=== PATIENT | female | born 1945 | race Caucasian/White ===

== ENCOUNTER 2019-12-05 13:39 | Outpatient (REF) | payer MEDICARE, SELFPAY ==
[2019-12-05 17:03] LABS: Alanine Aminotransferase 8 U/L (0-31); Albumin Level 4.3 g/dL (3.5-5.0); Alkaline Phosphatase 76 U/L (39-117); Anion Gap 10 (12-20); Aspartate Amino Transferase 17 U/L (5-31); Bilirubin Total 0.4 mg/dL (0.0-1.0); Blood Urea Nitrogen 11 mg/dL (9-16); Carbon Dioxide 31 mmol/L (22-29); Chloride 105 mmol/L (96-108); Estimated Glomerular Filt Rate 56; Glucose Random 77 mg/dL (60-115); Potassium 4.8 mmol/l (3.3-5.1); Sodium 141 mmol/L (135-145); Total Protein 6.5 g/dL (6.5-8.0)
[2019-12-05 19:18] LABS: Free T4 (Free Thyroxine) 0.93 ng/dL (0.71-1.85)
== END 2019-12-05 13:40 | disposition home or self-care (01) ==
LOC: HO.HMGCLDS 13:39
PROVIDERS: PCP Internal Medicine; Visit Provider Internal Medicine
DX: E03.9 Hypothyroidism, unspecified (principal); G47.00 Insomnia, unspecified; E78.9 Disorder of lipoprotein metabolism, unspecified; F41.9 Anxiety disorder, unspecified
CPT/HCPCS: 80053; 84439; 84443

== ENCOUNTER 2020-03-26 10:47 | Outpatient (REF) | payer MEDICARE, SELFPAY ==
[2020-03-26 13:54] LABS: MANUAL DIFF FLAG NO
[2020-03-26 14:17] LABS: Basophils Percent Auto 0.6 % (0-2); Eosinophils Absolute Auto 0.2 X10*3/uL (0.0-0.4); Eosinophils Percent Auto 5.1 % (0-4); Hematocrit 45.8 % (37-47); Hemoglobin 14.8 g/dl (12.0-16.0); Imm Gran Abs Auto 0.01 X10*3/uL (0.00-0.03); Imm Gran Pct Auto 0.2 % (0.0-0.4); Lymphocytes Absolute Auto 1.2 X10*3/uL (1.2-4.9); Lymphocytes Percent Auto 26.2 % (20-40); Mean Corpuscular HGB Conc 32.3 g/dl (31.0-35.0); Mean Corpuscular Hemoglobin 30.9 pg (27.0-33.0); Mean Corpuscular Volume 95.6 fL (80-98); Mean Platelet Volume 11.4 fL (9.4-12.3); Monocytes Absolute Auto 0.4 X10*3/uL (0.1-1.2); Monocytes Percent Auto 7.7 % (2-11); Neutrophils Absolute Auto 2.8 X10*3/uL (2.0-8.3); Neutrophils Percent Auto 60.2 % (45-73); Platelet Count 143 X10*3/uL (160-400); Red Blood Count 4.79 X10*6/uL (4.20-5.50); Red Cell Distribution Width 12.7 % (11.0-16.0); White Blood Count 4.7 X10*3/uL (4.8-10.8)
[2020-03-26 14:36] LABS: Anion Gap 13 (12-20); Blood Urea Nitrogen 12 mg/dL (9-16); Calcium 9.4 mg/dL (8.4-10.2); Carbon Dioxide 28 mmol/L (22-29); Chloride 106 mmol/L (96-108); Cholesterol 190 mg/dL; Estimated Glomerular Filt Rate > 60; Glucose Fasting 81 mg/dL (60-99); HDL Cholesterol 75 mg/dL; LDL Cholesterol Calculated 95 mg/dl; Potassium 4.3 mmol/L (3.3-5.1); Sodium 143 mmol/L (135-145); Triglycerides 101 mg/dL
[2020-03-26 14:57] LABS: TSH reflex Free T4 1.68 uIU/mL (0.32-4.0)
== END 2020-03-26 10:48 | disposition home or self-care (01) ==
LOC: HO.HMGCLDS 10:47
PROVIDERS: PCP Internal Medicine; Visit Provider Internal Medicine
DX: E78.9 Disorder of lipoprotein metabolism, unspecified (principal); G47.9 Sleep disorder, unspecified; E03.8 Other specified hypothyroidism; F41.1 Generalized anxiety disorder; Z85.819 Personal history of malignant neoplasm of unspecified site of lip, oral cavity, and pharynx
CPT/HCPCS: 36415; 80048; 80061; 84443; 85025

== ENCOUNTER 2020-05-27 10:00 | Outpatient (REF) | payer MEDICARE, SELFPAY ==
--- NOTE | ~2020-05-27 | MM_ITS ---
EXAMINATION: MM SCREENING DIGITAL BREAST TOMOSYNTHESIS, BILATERAL CLINICAL INFORMATION: Screening. Asymptomatic. Remote benign right lumpectomy 1996. The lifetime risk of breast cancer based on the Tyrer-Cuzick Model is 2%. COMPARISON: Mammography: 01/13/2019, 12/21/2017, 12/08/2016 TECHNIQUE: Digital breast tomosynthesis is performed in both the craniocaudal and mediolateral oblique views along with computer-aided detection (CAD). Synthesized 2D images are generated from the tomosynthesis. FINDINGS: There are scattered areas of fibroglandular density (ACR BI-RADS breast composition Category b). There are no significant masses, abnormal calcifications, or other abnormalities. Parenchymal pattern is similar to prior studies. There are some scattered vascular and some stable fine round calcifications again seen anterior breasts. MM/MM tomosynthesis screening BI IMPRESSION: No mammographic evidence of malignancy. ASSESSMENT: BI-RADS 2: Benign RECOMMENDATION: Routine annual mammography screening. This patient's information was entered into a reminder system with a target due date for their next mammogram.
== END 2020-05-27 10:01 | disposition home or self-care (01) ==
LOC: HO.MAMMO 10:00
PROVIDERS: Visit Provider Internal Medicine
DX: Z12.31 Encounter for screening mammogram for malignant neoplasm of breast (principal)
CPT/HCPCS: 77063; 77067

== ENCOUNTER 2020-07-17 11:11 | Outpatient (REF) | payer MEDICARE, SELFPAY ==
--- NOTE | ~2020-07-17 | XR_ITS ---
EXAMINATION: LUMBAR SPINE, RIGHT HIP AND SI JOINT. CLINICAL INFORMATION: Back pain. COMPARISON: None TECHNIQUE: SI joints 4 views right hip 2 views lumbar spine 3 views. FINDINGS: Lumbar spine: There is mild straightening of lumbar lordosis. The vertebral heights and alignment is normal. There is loss of L3-L4, L4-L5 disc height with moderate ventral spondylosis. There is no visible acute fracture, dislocation or lytic process. The paravertebral soft tissues are normal. SI joints: There is normal symmetry of SI joint. There is normal without any fracture or lytic process. Right hip joint: There is no visible acute fracture, dislocation or subluxation. No bony erosive changes seen. There are no loose bodies. The soft tissues are normal. XR/XR hip RT min 2V IMPRESSION: Degenerative disc changes L3-L4 and 4-5 disc levels without visible acute fracture or dislocation seen. Unremarkable SI joints and right hip exam.
--- NOTE | ~2020-07-17 | XR_ITS ---
EXAMINATION: LUMBAR SPINE, RIGHT HIP AND SI JOINT. CLINICAL INFORMATION: Back pain. COMPARISON: None TECHNIQUE: SI joints 4 views right hip 2 views lumbar spine 3 views. FINDINGS: Lumbar spine: There is mild straightening of lumbar lordosis. The vertebral heights and alignment is normal. There is loss of L3-L4, L4-L5 disc height with moderate ventral spondylosis. There is no visible acute fracture, dislocation or lytic process. The paravertebral soft tissues are normal. SI joints: There is normal symmetry of SI joint. There is normal without any fracture or lytic process. Right hip joint: There is no visible acute fracture, dislocation or subluxation. No bony erosive changes seen. There are no loose bodies. The soft tissues are normal. XR/XR sacroiliac joint 1-2V IMPRESSION: Degenerative disc changes L3-L4 and 4-5 disc levels without visible acute fracture or dislocation seen. Unremarkable SI joints and right hip exam.
--- NOTE | ~2020-07-17 | XR_ITS ---
EXAMINATION: LUMBAR SPINE, RIGHT HIP AND SI JOINT. CLINICAL INFORMATION: Back pain. COMPARISON: None TECHNIQUE: SI joints 4 views right hip 2 views lumbar spine 3 views. FINDINGS: Lumbar spine: There is mild straightening of lumbar lordosis. The vertebral heights and alignment is normal. There is loss of L3-L4, L4-L5 disc height with moderate ventral spondylosis. There is no visible acute fracture, dislocation or lytic process. The paravertebral soft tissues are normal. SI joints: There is normal symmetry of SI joint. There is normal without any fracture or lytic process. Right hip joint: There is no visible acute fracture, dislocation or subluxation. No bony erosive changes seen. There are no loose bodies. The soft tissues are normal. XR/XR lumbar spine 2-3V IMPRESSION: Degenerative disc changes L3-L4 and 4-5 disc levels without visible acute fracture or dislocation seen. Unremarkable SI joints and right hip exam.
== END 2020-07-17 11:12 | disposition home or self-care (01) ==
LOC: HO.XRAY 11:11
PROVIDERS: PCP Internal Medicine; Visit Provider Internal Medicine
DX: M54.5 Low back pain (principal); M25.551 Pain in right hip; R29.898 Other symptoms and signs involving the musculoskeletal system
CPT/HCPCS: 72100; 72200; 73502

== ENCOUNTER → 2020-08-05 10:53 | Outpatient (BNVA) | payer MEDICARE, SELFPAY | PROVIDERS: Visit Provider Physician Assistant | DX: M54.31 Sciatica, right side (principal); M54.5 Low back pain | CPT/HCPCS: 99202 ==

== ENCOUNTER 2020-09-05 10:40 | Outpatient (REF) | payer MEDICARE, SELFPAY ==
[2020-09-05 15:38] LABS: Hemoglobin 13.6 g/dl (12.0-16.0); PLT CLUMP 1
[2020-09-05 15:40] LABS: Hematocrit 41.3 % (37-47); Mean Corpuscular HGB Conc 32.9 g/dl (31.0-35.0); Mean Corpuscular Hemoglobin 31.3 pg (27.0-33.0); Mean Corpuscular Volume 94.9 fL (80-98); Mean Platelet Volume 11.3 fL (9.4-12.3); Platelet Count 126 X10*3/uL (160-400); Red Blood Count 4.35 X10*6/uL (4.20-5.50); Red Cell Distribution Width 12.8 % (11.0-16.0); White Blood Count 4.8 X10*3/uL (4.8-10.8)
[2020-09-05 15:49] LABS: Alanine Aminotransferase 8 U/L (0-31); Albumin Level 4.2 g/dL (3.5-5.0); Alkaline Phosphatase 93 U/L (39-117); Anion Gap 14 (12-20); Aspartate Amino Transferase 17 U/L (5-31); Bilirubin Total 0.5 mg/dL (0.0-1.0); Blood Urea Nitrogen 16 mg/dL (9-16); Calcium 9.2 mg/dL (8.4-10.2); Carbon Dioxide 26 mmol/L (22-29); Chloride 109 mmol/L (96-108); Estimated Glomerular Filt Rate 54; Glucose Random 75 mg/dL (60-115); Potassium 4.6 mmol/L (3.3-5.1); Sodium 144 mmol/L (135-145); Total Protein 6.7 g/dL (6.5-8.0)
== END 2020-09-05 10:41 | disposition home or self-care (01) ==
LOC: HO.HMGCLDS 10:40
PROVIDERS: PCP Internal Medicine; Visit Provider Dentist Oral and Maxillofacial Surgery
DX: C06.9 Malignant neoplasm of mouth, unspecified (principal)
CPT/HCPCS: 36415; 80053; 85027

== ENCOUNTER → 2020-09-24 09:14 | Outpatient (REF) | payer MEDICARE, SELFPAY ==
--- NOTE | 2020-09-24 09:18 | CA_ITS ---
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 The visually estimated ejection fraction is between 60-65%. - No obvious valvular pathology seen on this study. - Small plaque is seen in the ascending aorta. Findings Left Ventricle Normal left ventricular cavity size. There is normal left ventricular wall thickness. The left ventricular systolic function is normal. The visually estimated ejection fraction is between 60-65%. There is no evidence of regional wall motion abnormalities. E/E prime ratio is between 8 and 15 consistent with indeterminate filling pressures. Evidence suggests grade I (mild) diastolic dysfunction. Right Ventricle Normal right ventricular cavity size and systolic function. Atria Both atria are normal in size. Aortic Valve There is a normal trileaflet aortic valve. There is no aortic valve stenosis. There is no aortic valve regurgitation. Mitral Valve The mitral valve appears normal. There is trace mitral valve regurgitation. There is no mitral valve stenosis. Pulmonic Valve The pulmonic valve was not well visualized. Tricuspid Valve Normal tricuspid valve structure. There is no tricuspid valve regurgitation. The pulmonary artery systolic pressure is normal. Great Vessels The aortic annulus, sinuses of valsalva, and asc aorta are normal in size. Small plaque is seen in the ascending aorta. Venous The inferior vena cava is normal in size and collapses greater than 50% with inspiration. Pericardium/Pleural There is no evidence of pericardial effusion. Prior Study Comparison No prior study available for comparison. Recommendations, Care & Conclusions No obvious valvular pathology seen on this study. Measurements 2D Linear Measurements IVSd: 1.03 0.6-0.9/0.6-1.0 cm LVIDd: 3.70 3.9-5.3/4.2-5.9 cm LVIDd Index: 2.31 2.4-3.2/2.2-3.1 cm/m2 LVIDs: 2.36 2.0-3.6 cm LVPWd: 0.92 0.7-1.1 cm Ao Root: 2.60 2.1-3.5 cm LA Diam: 2.20 2.7-3.8/3.0-4.0 cm LAIDs Index: 1.38 1.5-2.3 cm/m2 LV Mass: 134.80 67-162/88-224 g LV Mass Index: 84.25 43-95/49-115 g/m2 LVOT Diam: 2.00 3.0+(-)1.3 cm 2D Systolic Function EF 4C: 66.10 >55% EF 2C: 64.40 >55% EF BiP: 65.10 >55% Mitral Valve MV Pk E: 0.76 MV PK A: 0.78 MV Decel Time: 234.00 E/A: 1.00 E'Lateral: 8.49 E'Medial: 5.22 E/E' Med: 14.60 E/E' Lat: 9.00 PHT: 68.00 MVA PHT: 3.24 Decel Hart: 3.26 Aortic Valve AoV Pk Amari: 1.38 AoV Mn Amari: 0.89 AoV VTI: 0.33 AoV Pk Grad: 8.00 Aov Mn Grad: 4.00 CHACHA Cont.VTI: 2.06 LVOT LVOT Pk Amari: 0.97 LVOT Mn Amari: 0.57 LVOT VTI: 0.22 LVOT Pk Grad: 4.00 LVOT Mn Grad: 2.00 LVOT Diam: 2.00 LVOT Area: 3.14 Diastolic Function MV Pk E: 0.76 MV Pk A: 0.78 E/A: 1.00 E'Medial: 5.22 E/E' Med: 14.60 E' Laterial: 8.49 E/E' Lat: 9.00 Right Ventricle TAPSE (mm): 27.00 TVS' Amari: 12.00 Tricuspid Valve TR Pk Amari: 1.71 TR Pk Grad: 12.00 RA Press: 3.00 RVSP: 15.00 Great Vessels Aorta Ao Root-2D: 2.60 2.0-3.7 cm Ao Asc: 2.80 2.1-3.4 cm Ao Arch: 2.10 Pulmonary Valve PV Pk Amari: 0.79 Peak PV Grad: 2.00 Updated in Other Vendor System with Status of Final Floyd Lopez MD electronically signed on 09/25/2020 12:32:32 PM with status of Final
== END ==
LOC: HO.CARD 09:14
PROVIDERS: PCP Internal Medicine; Visit Provider Internal Medicine
DX: Z01.818 Encounter for other preprocedural examination (principal); E78.9 Disorder of lipoprotein metabolism, unspecified; E03.8 Other specified hypothyroidism
CPT/HCPCS: 93306

== ENCOUNTER 2020-10-20 08:51 | Outpatient (REF) | payer MEDICARE, SELFPAY ==
[2020-10-20 11:05] LABS: MANUAL DIFF FLAG NO
[2020-10-20 11:16] LABS: Basophils Percent Auto 0.6 % (0-2); Eosinophils Absolute Auto 0.4 X10*3/uL (0.0-0.4); Eosinophils Percent Auto 7.3 % (0-4); Hemoglobin 13.6 g/dl (12.0-16.0); Imm Gran Abs Auto 0.02 X10*3/uL (0.00-0.03); Imm Gran Pct Auto 0.4 % (0.0-0.4); Lymphocytes Absolute Auto 1.3 X10*3/uL (1.2-4.9); Lymphocytes Percent Auto 25.9 % (20-40); Mean Corpuscular HGB Conc 32.4 g/dl (31.0-35.0); Mean Corpuscular Hemoglobin 30.7 pg (27.0-33.0); Mean Corpuscular Volume 94.8 fL (80-98); Monocytes Absolute Auto 0.4 X10*3/uL (0.1-1.2); Monocytes Percent Auto 7.9 % (2-11); Neutrophils Percent Auto 57.9 % (45-73); Platelet Count 129 X10*3/uL (160-400); Red Blood Count 4.43 X10*6/uL (4.20-5.50); Red Cell Distribution Width 12.9 % (11.0-16.0); White Blood Count 5.1 X10*3/uL (4.8-10.8)
[2020-10-20 12:02] LABS: TSH reflex Free T4 0.45 uIU/mL (0.32-4.0)
[2020-10-20 12:04] LABS: Alanine Aminotransferase 13 U/L (0-31); Albumin Level 4.2 g/dL (3.5-5.0); Alkaline Phosphatase 86 U/L (39-117); Anion Gap 13 (12-20); Aspartate Amino Transferase 20 U/L (5-31); Bilirubin Total 0.5 mg/dL (0.0-1.0); Blood Urea Nitrogen 15 mg/dL (9-16); Calcium 9.6 mg/dL (8.4-10.2); Carbon Dioxide 28 mmol/L (22-29); Chloride 109 mmol/L (96-108); Cholesterol 177 mg/dL; Estimated Glomerular Filt Rate 56; Glucose Fasting 87 mg/dL (60-99); HDL Cholesterol 78 mg/dL; LDL Cholesterol Calculated 84 mg/dl; Potassium 5.1 mmol/L (3.3-5.1); Sodium 145 mmol/L (135-145); Total Protein 6.6 g/dL (6.5-8.0); Triglycerides 77 mg/dL
== END 2020-10-20 08:52 | disposition home or self-care (01) ==
LOC: HO.HMGCLDS 08:51
PROVIDERS: PCP Internal Medicine; Visit Provider Internal Medicine
DX: E03.8 Other specified hypothyroidism (principal); E78.9 Disorder of lipoprotein metabolism, unspecified; F41.1 Generalized anxiety disorder; G47.9 Sleep disorder, unspecified
CPT/HCPCS: 36415; 80053; 80061; 84443; 85025

== ENCOUNTER 2020-12-18 12:50 | Outpatient (REF) | payer MEDICARE, SELFPAY ==
[2020-12-18 14:44] LABS: Alanine Aminotransferase 14 U/L (0-31); Albumin Level 4.3 g/dL (3.5-5.0); Alkaline Phosphatase 84 U/L (39-117); Anion Gap 11 (12-20); Aspartate Amino Transferase 25 U/L (5-31); Bilirubin Total 0.3 mg/dL (0.0-1.0); Blood Urea Nitrogen 9 mg/dL (9-16); Calcium 9.4 mg/dL (8.4-10.2); Carbon Dioxide 27 mmol/L (22-29); Chloride 108 mmol/L (96-108); Estimated Glomerular Filt Rate > 60; Glucose Random 87 mg/dL (60-115); Potassium 4.6 mmol/L (3.3-5.1); Sodium 141 mmol/L (135-145); Total Protein 6.8 g/dL (6.5-8.0)
== END 2020-12-18 12:51 | disposition home or self-care (01) ==
LOC: HO.HMGCLDS 12:50
PROVIDERS: PCP Internal Medicine; Visit Provider Dentist Oral and Maxillofacial Surgery
DX: C06.9 Malignant neoplasm of mouth, unspecified (principal)
CPT/HCPCS: 36415; 80053

== ENCOUNTER 2021-03-06 11:06 | Outpatient (REF) | payer MEDICARE, SELFPAY ==
[2021-03-06 13:41] LABS: MANUAL DIFF FLAG NO
[2021-03-06 14:00] LABS: Basophils Percent Auto 0.6 % (0-2); Eosinophils Absolute Auto 0.3 X10*3/uL (0.0-0.4); Hematocrit 43.7 % (37.0-47.0); Hemoglobin 14.2 g/dl (12.0-16.0); Imm Gran Abs Auto 0.01 X10*3/uL (0.00-0.03); Imm Gran Pct Auto 0.2 % (0.0-0.4); Lymphocytes Absolute Auto 1.4 X10*3/uL (1.2-4.9); Lymphocytes Percent Auto 29.7 % (20-40); Mean Corpuscular HGB Conc 32.5 g/dl (31.0-35.0); Mean Corpuscular Hemoglobin 30.8 pg (27.0-33.0); Mean Corpuscular Volume 94.8 fL (80.0-98.0); Mean Platelet Volume 11.1 fL (9.4-12.3); Monocytes Absolute Auto 0.3 X10*3/uL (0.1-1.2); Monocytes Percent Auto 6.4 % (2-11); Neutrophils Absolute Auto 2.8 x10*3/uL (2.0-8.3); Neutrophils Percent Auto 57.1 % (45-73); Platelet Count 130 X10*3/uL (160-400); Red Blood Count 4.61 X10*6/uL (4.20-5.50); White Blood Count 4.8 X10*3/uL (4.8-10.8)
[2021-03-06 14:13] LABS: Alanine Aminotransferase 16 U/L (0-31); Albumin Level 4.2 g/dL (3.5-5.0); Alkaline Phosphatase 92 U/L (39-117); Anion Gap 13 (12-20); Aspartate Amino Transferase 23 U/L (5-31); Bilirubin Total 0.4 mg/dL (0.0-1.0); Blood Urea Nitrogen 12 mg/dL (9-16); Calcium 9.5 mg/dL (8.4-10.2); Carbon Dioxide 26 mmol/L (22-29); Chloride 110 mmol/L (96-108); Estimated Glomerular Filt Rate 55; Glucose Random 98 mg/dL (60-115); Potassium 4.5 mmol/L (3.3-5.1); Sodium 144 mmol/L (135-145); Total Protein 6.8 g/dL (6.5-8.0)
[2021-03-06 14:37] LABS: TSH reflex Free T4 2.18 uIU/mL (0.32-4.0)
== END 2021-03-06 11:07 | disposition home or self-care (01) ==
LOC: HO.HMGCLDS 11:06
PROVIDERS: PCP Internal Medicine; Visit Provider Internal Medicine
DX: E78.9 Disorder of lipoprotein metabolism, unspecified (principal); E03.8 Other specified hypothyroidism; G47.9 Sleep disorder, unspecified; F41.1 Generalized anxiety disorder; D69.6 Thrombocytopenia, unspecified
CPT/HCPCS: 36415; 80053; 84443; 85025

== ENCOUNTER 2021-03-18 16:55 | Outpatient (REF) | payer MEDICARE, SELFPAY ==
[2021-03-19 10:02] LABS: BV Int Neg Control Negative (Negative); BV Int Pos Control Positive (Positive)
== END 2021-03-18 16:56 | disposition home or self-care (01) ==
LOC: HO.LNP 16:55
PROVIDERS: Visit Provider Internal Medicine
DX: N89.8 Other specified noninflammatory disorders of vagina (principal)
CPT/HCPCS: 87480; 87510; 87660

== ENCOUNTER 2021-05-28 10:44 | Outpatient (REF) | payer MEDICARE, SELFPAY ==
--- NOTE | ~2021-05-28 | MM_ITS ---
EXAMINATION: MM SCREENING DIGITAL BREAST TOMOSYNTHESIS, BILATERAL CLINICAL INFORMATION: Screening. Asymptomatic. Remote benign right breast lumpectomy. The lifetime risk of breast cancer based on the Tyrer-Cuzick Model is 2.3%. COMPARISON: Mammography: May 27, 2020 and studies dating back to July 20, 2013 TECHNIQUE: Digital breast tomosynthesis is performed in both the craniocaudal and mediolateral oblique views along with computer-aided detection (CAD). Synthesized 2D images are generated from the tomosynthesis. FINDINGS: There are scattered areas of fibroglandular density (ACR BI-RADS breast composition Category b). There are no new significant masses, abnormal calcifications, or other abnormalities. MM/MM tomosynthesis screening BI IMPRESSION: There are no significant changes from prior study. ASSESSMENT: BI-RADS 1: Negative RECOMMENDATION: Routine annual mammography screening. This patient's information was entered into a reminder system with a target due date for their next mammogram.
== END 2021-05-28 10:45 | disposition home or self-care (01) ==
LOC: HO.MAMMO 10:44
PROVIDERS: PCP Internal Medicine; Visit Provider Internal Medicine
DX: Z12.31 Encounter for screening mammogram for malignant neoplasm of breast (principal)
CPT/HCPCS: 77063; 77067

== ENCOUNTER 2021-07-29 10:36 | Outpatient (REF) | payer MEDICARE, SELFPAY ==
[2021-07-29 12:32] LABS: Alanine Aminotransferase 14 U/L (0-31); Albumin Level 4.2 g/dL (3.5-5.0); Alkaline Phosphatase 100 U/L (39-117); Anion Gap 13 (12-20); Aspartate Amino Transferase 21 U/L (5-31); Bilirubin Total 0.3 mg/dL (0.0-1.0); Blood Urea Nitrogen 18 mg/dL (9-16); Calcium 9.7 mg/dL (8.4-10.2); Carbon Dioxide 25 mmol/L (22-29); Chloride 109 mmol/L (96-108); Estimated Glomerular Filt Rate 58; Glucose Random 78 mg/dL (60-115); Potassium 4.4 mmol/L (3.3-5.1); Sodium 143 mmol/L (135-145); Total Protein 6.8 g/dL (6.5-8.0)
[2021-07-29 12:35] LABS: TSH reflex Free T4 1.23 uIU/mL (0.32-4.0)
== END 2021-07-29 10:37 | disposition home or self-care (01) ==
LOC: HO.HMGCLDS 10:36
PROVIDERS: PCP Internal Medicine; Visit Provider Internal Medicine
DX: F41.1 Generalized anxiety disorder (principal); G47.9 Sleep disorder, unspecified; E03.8 Other specified hypothyroidism; E78.9 Disorder of lipoprotein metabolism, unspecified; Z85.819 Personal history of malignant neoplasm of unspecified site of lip, oral cavity, and pharynx
CPT/HCPCS: 36415; 80053; 84443

== ENCOUNTER 2021-08-07 10:00 | Outpatient (RCR) | payer MEDICARE, SELFPAY ==
[2021-08-04 10:00] VITALS: BP 118/80; PULSE 60; O2SAT 97
--- NOTE | 2021-08-04 11:24 | MHC.PT.EP ---
[facility] [place] Office [place] Office [place] Office [address] Michelle White [address] [phone] F: [phone] F: [phone] F: [phone] F: [phone] Physical Therapy Plan of Care Date of Evaluation: Date of Surgery: Diagnosis: This is a 75 yo female presenting to skilled PT with a script for vertigo. Assessment: This is a 75 yo female presenting to skilled PT with a script for vertigo. Patient reporting symptoms for over 15 years, every now and then it acts up and it is acting up now. Symptoms increase with turning her head, getting up at night, looking up and doing stairs. Driving does not bother. Symptoms are described as my eyes are spinning. She has a history of oral cancer and she had a surgery that involved the L ear. She has not had any falls from the dizziness. Examination shows normal oculomotor tests, normal head thrust, (-) VBI B, and WFL cervical AROM. She was (+) for BPPV with suma-hallpike and L suha maneuver which was improved s/p tx. Patient demos poor balance balance at [facility] prior to assessing vertigo (may not be related to vertigo) but this was discussed with the patient and will do more so next session. S/S consistent with L PC BPPV and would benefit from PT 2x/wk for 4wks to address impairments, implement HEP and optimize functional mobility. Frequency and Duration: The patient will be seen 2x/wk for 4wks Short Term Goals: Dinker Goals: I in HEP No nystagmus or symptoms in any testing positions No LOB noted and normal scores on balance tests Treatment Plan: Modalities to reduce pain, spasms and effusion. Manual therapy to restore motion and function. Therapeutic exercise to improve strength and flexibility. Neuromuscular re-education for posture and balance. Therapeutic activities to return to functional activities of daily living. Electronically signed by: Vivian Romero PT Please sign and return to therapist. Thank you for your referral.
--- NOTE | 2021-09-04 08:25 | MHC.PT.DC ---
[facility] [place] Office [place] Office [place] Office [address] Michelle White [address] [phone] F: [phone] F: [phone] F: [phone] F: [phone] Physical Therapy Discharge Report Diagnosis: This is a 75 yo female presenting to skilled PT with a script for vertigo. Date of Surgery: Date of Evaluation: 08/04/21 Date of Discharge: 09/04/21 Treatments to Date: 2 Cancellations to Date: 0 No Shows to Date: 0 Discharge Status: Achieved Goals Improved Function Patient Elected to Stop Discharge Summary: Patient reporting no symptoms since evaluation. She was negative in all 6 canals of nystagmus or dizziness. She had a little lightheadedness upon supine <> sit which I attributed to BP as it lasted only a few seconds. She understands to call our office if symptoms return, I kept her chart open for 30 days and then DC'd. Electronically signed by: Vivian Romero, PT Please sign and return to therapist. Thank you for your referral.
== END 2021-09-04 08:26 | disposition home or self-care (01) ==
LOC: HO.PTCHIC 10:00
PROVIDERS: PCP Internal Medicine; Visit Provider Internal Medicine
DX: R42 Dizziness and giddiness (principal)
CPT/HCPCS: 95992; 97112; 97162

== ENCOUNTER 2021-10-21 13:00 | Outpatient (RCR) | payer MEDICARE, SELFPAY ==
[2021-10-01 08:58] VITALS: BP 120/80; PULSE 62; O2SAT 96
--- NOTE | 2021-11-20 13:26 | MHC.PT.DC ---
[facility] [place] Office [place] Office [place] Office [address] [place] [address] [address] White [address] [phone] F: [phone] F: [phone] F: [phone] F: [phone] Physical Therapy Discharge Report Diagnosis: This is a 75 yo female presenting to skilled PT with a script for vertigo. Date of Surgery: Date of Evaluation: 10/01/21 Date of Discharge: 11/20/21 Treatments to Date: 3 Cancellations to Date: 0 No Shows to Date: 0 Discharge Status: Achieved Goals Improved Function Independent with HEP Discharge Summary: Patient continues to be negative in all 6 canals for nystagmus and dizziness. She continues to demo some decreased balance with assessment but not from dizziness. I educated her on VOR exercises at home on own still with increasing speed to continue retraining exercises. Will keep chart open for 30 days due to reoccurrence from previous eval this year. Electronically signed by: Vivian Romero, PT Please sign and return to therapist. Thank you for your referral.
== END 2021-11-20 13:26 | disposition home or self-care (01) ==
LOC: HO.PTCHIC 13:00
PROVIDERS: PCP Internal Medicine; Visit Provider Internal Medicine
DX: R42 Dizziness and giddiness (principal)
CPT/HCPCS: 95992; 97112; 97162

== ENCOUNTER 2021-12-11 15:28 | Emergency (ER) | payer MEDICARE, SELFPAY ==
--- NOTE | ~2021-12-11 | CT_ITS ---
EXAMINATION: HEAD CT WITHOUT CONTRAST CERVICAL SPINE CT WITHOUT CONTRAST CLINICAL INFORMATION: Fall, head injury COMPARISON: None. TECHNIQUE: Contiguous axial imaging of the head was performed without the administration of IV contrast. Axial multidetector volumetric images were also performed through the cervical spine without contrast. Multiplanar reconstructed images in coronal and sagittal orientations were submitted. DOSE: 1022 mGy-cm FINDINGS: HEAD: There is no evidence of acute intracranial hemorrhage or territorial infarction. No abnormal mass-effect or midline shift. No extra-axial fluid collections. Tineo to white matter differentiation is well preserved. Commensurate prominence of the ventricles and sulci is compatible with generalized parenchymal volume loss. There is mild patchy periventricular and subcortical white matter hypoattenuation, most likely representing microangiopathic disease no acute calvarial fracture.. The sinuses and mastoid air cells are clear. CERVICAL SPINE: Craniocervical and atlantoaxial articulation is maintained. Predental space is maintained. There is reversal of the spinal curvature. Grade 1 anterolisthesis of C4 on C5. There is bilateral facet arthropathy at this level. Vertebral body heights are maintained. No evidence of acute fracture. Cervical spondylosis present. More prominent changes of moderate C6-7 disc degeneration. Multilevel facet degeneration.. Biapical pleural-parenchymal scarring. CT/CT cervical spine wo IV con IMPRESSION: 1. No CT evidence of acute intracranial hemorrhage or edematous territorial infarction. 2. No CT evidence of acute fracture in cervical spine. 3. Cervical spondylosis. Grade 1 anterolisthesis of C4, probably degenerative in nature.
--- NOTE | ~2021-12-11 | CT_ITS ---
EXAMINATION: HEAD CT WITHOUT CONTRAST CERVICAL SPINE CT WITHOUT CONTRAST CLINICAL INFORMATION: Fall, head injury COMPARISON: None. TECHNIQUE: Contiguous axial imaging of the head was performed without the administration of IV contrast. Axial multidetector volumetric images were also performed through the cervical spine without contrast. Multiplanar reconstructed images in coronal and sagittal orientations were submitted. DOSE: 1022 mGy-cm FINDINGS: HEAD: There is no evidence of acute intracranial hemorrhage or territorial infarction. No abnormal mass-effect or midline shift. No extra-axial fluid collections. Tineo to white matter differentiation is well preserved. Commensurate prominence of the ventricles and sulci is compatible with generalized parenchymal volume loss. There is mild patchy periventricular and subcortical white matter hypoattenuation, most likely representing microangiopathic disease no acute calvarial fracture.. The sinuses and mastoid air cells are clear. CERVICAL SPINE: Craniocervical and atlantoaxial articulation is maintained. Predental space is maintained. There is reversal of the spinal curvature. Grade 1 anterolisthesis of C4 on C5. There is bilateral facet arthropathy at this level. Vertebral body heights are maintained. No evidence of acute fracture. Cervical spondylosis present. More prominent changes of moderate C6-7 disc degeneration. Multilevel facet degeneration.. Biapical pleural-parenchymal scarring. CT/CT head/brain wo IV con IMPRESSION: 1. No CT evidence of acute intracranial hemorrhage or edematous territorial infarction. 2. No CT evidence of acute fracture in cervical spine. 3. Cervical spondylosis. Grade 1 anterolisthesis of C4, probably degenerative in nature.
[2021-12-11 16:25] VITALS: BP 111/75; PULSE 58; RESP 18; O2SAT 98; BMI 26.4
--- NOTE | 2021-12-11 16:31 | ECG_ITS ---
Test Reason : FALL Blood Pressure : / mmHG Vent. Rate : 056 BPM Atrial Rate : 056 BPM P-R Int : 174 ms QRS Dur : 082 ms QT Int : 436 ms P-R-T Axes : 072 027 039 degrees QTc Int : 420 ms Sinus bradycardia Low voltage QRS Otherwise normal ECG No previous ECGs available Referred By: Generic ED Physician Electronically Signed By:MARYLIN LAW MD
[2021-12-11 19:27] LABS: Neutrophils Absolute Auto 4.7 x10*3/uL (2.0-8.3); PLT CLUMP 1; SCAN SMEAR FLAG 1
[2021-12-11 19:29] LABS: Basophils Percent Auto 0.4 % (0-2); Eosinophils Absolute Auto 0.4 X10*3/uL (0.0-0.4); Eosinophils Percent Auto 6.1 % (0-4); Hemoglobin 13.3 g/dl (12.0-16.0); Imm Gran Abs Auto 0.02 X10*3/uL (0.00-0.03); Imm Gran Pct Auto 0.3 % (0.0-0.4); Lymphocytes Absolute Auto 1.2 X10*3/uL (1.2-4.9); Lymphocytes Percent Auto 18.3 % (20-40); Mean Corpuscular HGB Conc 32.4 g/dl (31.0-35.0); Mean Corpuscular Hemoglobin 30.6 pg (27.0-33.0); Mean Corpuscular Volume 94.3 fL (80.0-98.0); Monocytes Absolute Auto 0.4 X10*3/uL (0.1-1.2); Monocytes Percent Auto 5.5 % (2-11); Neutrophils Percent Auto 69.4 % (45-73); Red Blood Count 4.35 X10*6/uL (4.20-5.50); Red Cell Distribution Width 13.9 % (11.0-16.0)
[2021-12-11 19:31] LABS: Platelet Count 114 X10*3/uL (160-400); White Blood Count 6.8 X10*3/uL (4.8-10.8)
[2021-12-11 19:32] LABS: MANUAL DIFF FLAG NO
[2021-12-11 19:34] LABS: Prothrombin Time 11.7 SEC (10.0-13.1)
[2021-12-11 19:48] LABS: Alanine Aminotransferase 11 U/L (0-31); Albumin Level 4.6 g/dL (3.5-5.0); Alkaline Phosphatase 97 U/L (39-117); Anion Gap 14 (12-20); Aspartate Amino Transferase 20 U/L (5-31); Bilirubin Direct 0.2 mg/dL (0.0-0.5); Bilirubin Total 0.5 mg/dL (0.0-1.0); Blood Urea Nitrogen 12 mg/dL (9-16); Calcium 9.6 mg/dL (8.4-10.2); Carbon Dioxide 27 mmol/L (22-29); Chloride 105 mmol/L (96-108); Creatinine Clr Calc Pharmacy 45.6; Estimated Glomerular Filt Rate > 60; Glucose Random 104 mg/dL (60-115); Lipase 24 U/L (8-78); Sodium 142 mmol/L (135-145); Total Protein 7.2 g/dL (6.5-8.0)
[2021-12-11 19:51] LABS: Troponin-I High Sensitivity < 3.5 ng/L (<3.5-17.0)
[2021-12-12 00:58] VITALS: BP 152/47; PULSE 54; RESP 17; TEMP 37.1; O2SAT 96
--- NOTE | 2021-12-12 01:29 | ED.FALL ---
HPI - Fall General Chief Complaint: Fall Stated Complaint: fall/head inj Time Seen by Provider: 12/12/21 00:54 Source: patient and family Mode of arrival: ambulatory History of Present Illness HPI Narrative: 36-year-old female who presents for evaluation after stating that she stepped off of a step stool, lost her balance and struck the back of her head against the tile on her bathroom wall without loss of consciousness. She denies any use of anticoagulation. At this time she denies any dizziness, headache, visual/speech difficulties and denies any unilateral weakness/numbness/tingling. Related Data Home Medications Medication Instructions Recorded Confirmed flu vacc 2020-21(65yr 0.5 ml IM DIRECTED 12/19/19 07/29/21 up)-MF59C(PF) 60 mcg(15 mcgx4)/0.5 mL IM syringe cetirizine 10 mg tablet (Zyrtec) 10 mg PO DAILY PRN 06/02/21 12/04/21 Previous Rx's Medication Instructions Recorded levothyroxine 100 mcg tablet 100 mcg PO DAILY 90 days #90 tabs 08/28/21 lovastatin 40 mg tablet 80 mg PO DAILY 90 days #180 tabs 08/28/21 sertraline 100 mg tablet 200 mg PO DAILY 90 days #180 tabs 12/04/21 trazodone 100 mg tablet 100 mg PO DAILY 90 days #90 tabs 12/04/21 Allergies Allergy/AdvReac Type Severity Reaction Status Date / Time No Known Drug Allergies Allergy Unknown Unknown Verified 12/04/21 11:52 Review of Systems Review of Systems: Pertinent positives and negatives as stated in HPI 10 point review of systems is otherwise negative. [facility] Past Medical History Source: nursing notes reviewed Medical History Anxiety, generalized Difficulty sleeping History of mouth cancer Lipid disorder Other specified hypothyroidism Pre-op evaluation Preoperative evaluation for tubal ligation Surgical History History of colonoscopy History of oral surgery History of rotator cuff surgery History of tonsillectomy Status post excisional biopsy Family History Family History Father HTN (hypertension) Mother Myocardial infarction Brother HTN (hypertension) Diabetes mellitus Son No problems noted. Daughter No problems noted. Brother No problems noted. Brother No problems noted. Sister No problems noted. Sister No problems noted. Son No problems noted. Social History Social History Housing: House Alcohol intake: current Alcohol intake frequency: holidays/special occasions only Alcohol type: beer Patient Tobacco Use Status: Former Tobacco user (quit 5 years ago ) Tobacco use type: Cigarette Cigarette Packs Per Day: 1 Years Smoked: 60 e-Cigarette/Vaping Use: Never Used Advance Directives: No Advance Directives Information Provided: No service: No Current occupational status: retired Cognitive needs: No Hearing needs: No Vision needs: No Physical Exam Vital Signs: Vital Signs: Last Vital Signs Temp 98.7 F 12/12/21 00:58 Pulse 54 12/12/21 00:58 Resp 17 12/12/21 00:58 BP 152/47 H 12/12/21 00:58 Pulse Ox 96 12/12/21 00:58 O2 Del Method 12/12/21 00:58 BMI result Body Mass Index 26.4 VITAL SIGNS: Reviewed. GENERAL: Well developed, well nourished, in no acute distress. HEAD: Normocephalic/scalp laceration to the mid occipital and currently hemostatic EYES: PERRLA, EOMI EARS: Ext canals without abnormality, TMs non-bulging and non-erythematous NOSE: Nares patent bilateral OROPHARYNX: no oral lesions noted, posterior pharynx clear and non-erythematous without noted tonsillar enlargement/erythema/exudates NECK: Supple, no adenopathy LUNGS: Normal breath sounds. No adventitious sounds or accessory muscle use. SpO2<96> CARDIOVASCULAR: Regular rate and rhythm without noted murmurs ABDOMEN: Soft, non-tender, non-distended with bowel sounds. MUSCULOSKELETAL: No tenderness, deformities, or effusions noted on gross inspection. EXTREMITIES: No cyanosis, clubbing or edema. SKIN: Inspection of the skin reveals no rashes NEUROLOGIC: Alert and oriented x 4. Strength and sensation to light touch were grossly intact x 4. Course Course Course Narrative: 76-year-old female with history and clinical presentation consistent with scalp laceration associated with mechanical fall. Review of all investigations otherwise negative for acute findings, patient received Tdap for unknown last tetanus and 2 yoselin were placed in the scalp. Procedures Laceration Laceration 1: Site: scalp Size (cm): 2.5 Description: linear Depth: simple, single layer Pre-repair: wound explored, irrigated extensively and deep structures intact Skin layer closed with: other (Staple) Number of sutures: 2 MDM - Fall Lab Data Result diagrams: 12/11/21 19:09 12/11/21 19:09 Labs: Lab Results 12/11/21 12/11/21 12/11/21 Range/Units 19:09 19:09 19:09 WBC 6.8 (4.8-10.8) X10*3/uL RBC 4.35 (4.20-5.50) X10*6/uL Hgb 13.3 (12.0-16.0) g/dl Hct 41.0 (37.0-47.0) % MCV 94.3 (80.0-98.0) fL MCH 30.6 (27.0-33.0) pg MCHC 32.4 (31.0-35.0) g/dl RDW 13.9 (11.0-16.0) % Plt Count 114 L (160-400) X10*3/uL MPV 11.0 (9.4-12.3) fL Immature Gran % (Auto) 0.3 (0.0-0.4) % Neut % (Auto) 69.4 (45-73) % Lymph % (Auto) 18.3 L (20-40) % [place] % (Auto) 5.5 (2-11) % Eos % (Auto) 6.1 H (0-4) % Baso % (Auto) 0.4 (0-2) % Lymph # (Auto) 1.2 (1.2-4.9) X10*3/uL [place] # (Auto) 0.4 (0.1-1.2) X10*3/uL Eos # (Auto) 0.4 (0.0-0.4) X10*3/uL Baso # (Auto) 0.0 (0.0-0.2) X10*3/uL Abs Immat Gran (auto) 0.02 (0.00-0.03) X10*3/uL Absolute Neuts (auto) 4.7 (2.0-8.3) x10*3/uL Absolute Nucleated RBC 0.000 (0.0-0.012) X10*3/uL Nucleated RBC % (auto) 0.0 (0.0-0.2) /100WBC PT 11.7 (10.0-13.1) SEC INR 1.0 (0.9-1.1) Sodium 142 (135-145) mmol/L Potassium 4.0 (3.3-5.1) mmol/L Chloride 105 (96-108) mmol/L Carbon Dioxide 27 (22-29) mmol/L Anion Gap 14 (12-20) BUN 12 (9-16) mg/dL Creatinine 0.91 (0.5-1.4) mg/dL Estim Creat Clear Calc 45.6 Estimated GFR > 60 Random Glucose 104 (60-115) mg/dL Calcium 9.6 (8.4-10.2) mg/dL Total Bilirubin 0.5 (0.0-1.0) mg/dL Direct Bilirubin 0.2 (0.0-0.5) mg/dL AST 20 (5-31) U/L ALT 11 (0-31) U/L Alkaline Phosphatase 97 (39-117) U/L Troponin I High Sens (<3.5-17.0) ng/L Total Protein 7.2 (6.5-8.0) g/dL Albumin 4.6 (3.5-5.0) g/dL Lipase 24 (8-78) U/L // Range/Units 19:09 WBC (4.8-10.8) X10*3/uL RBC (4.20-5.50) X10*6/uL Hgb (12.0-16.0) g/dl Hct (37.0-47.0) % MCV (80.0-98.0) fL MCH (27.0-33.0) pg MCHC (31.0-35.0) g/dl RDW (11.0-16.0) % Plt Count (160-400) X10*3/uL MPV (9.4-12.3) fL Immature Gran % (Auto) (0.0-0.4) % Neut % (Auto) (45-73) % Lymph % (Auto) (20-40) % [place] % (Auto) (2-11) % Eos % (Auto) (0-4) % Baso % (Auto) (0-2) % Lymph # (Auto) (1.2-4.9) X10*3/uL [place] # (Auto) (0.1-1.2) X10*3/uL Eos # (Auto) (0.0-0.4) X10*3/uL Baso # (Auto) (0.0-0.2) X10*3/uL Abs Immat Gran (auto) (0.00-0.03) X10*3/uL Absolute Neuts (auto) (2.0-8.3) x10*3/uL Absolute Nucleated RBC (0.0-0.012) X10*3/uL Nucleated RBC % (auto) (0.0-0.2) /100WBC PT (10.0-13.1) SEC INR (0.9-1.1) Sodium (135-145) mmol/L Potassium (3.3-5.1) mmol/L Chloride (96-108) mmol/L Carbon Dioxide (22-29) mmol/L Anion Gap (12-20) BUN (9-16) mg/dL Creatinine (0.5-1.4) mg/dL Estim Creat Clear Calc Estimated GFR Random Glucose (60-115) mg/dL Calcium (8.4-10.2) mg/dL Total Bilirubin (0.0-1.0) mg/dL Direct Bilirubin (0.0-0.5) mg/dL AST (5-31) U/L ALT (0-31) U/L Alkaline Phosphatase (39-117) U/L Troponin I High Sens < 3.5 (<3.5-17.0) ng/L Total Protein (6.5-8.0) g/dL Albumin (3.5-5.0) g/dL Lipase (8-78) U/L Discharge Plan Discharge Clinical Impression: Fall, Laceration of scalp Patient Disposition: Home, Self-Care Instructions: Fall Prevention for Older Adults (ED), Laceration (ED), Staple Care (ED) Additional Instructions: 1. Resume all home medications as prescribed. I recommend [id number] Tylenol/ibuprofen as needed for any pain control. 2. Please follow-up with your primary care provider for staple removal in 7 days. 3. Exercise caution with combing/brushing your hair but you may go ahead in wash her hair with warm water, rinse and blot dry. 4. Follow-up with your primary care provider by calling the office on Tuesday morning. Return to the ER for worsening symptoms. Prescriptions: No Action levothyroxine 100 mcg tablet 100 mcg PO DAILY 90 Days Qty: 90 1RF lovastatin 40 mg tablet 80 mg PO DAILY 90 Days Qty: 180 1RF Fluad Quad 2019-(65y up)(PF) 60 mcg (15 mcg x 4)/0.5 mL syringe 0.5 ml IM DIRECTED cetirizine [Zyrtec] 10 mg tablet 10 mg PO DAILY PRN trazodone 100 mg tablet 100 mg PO DAILY 90 Days Qty: 90 0RF sertraline 100 mg tablet 200 mg PO DAILY 90 Days Qty: 180 1RF Referrals: Maye Luna MD [Primary Care Provider] -
[2021-12-12] MEDS: Diphth,Pertus(ACell),Tet Adult 0.5 ML SYRINGE IM (01:53)
[2021-12-12] MEDS: Ibuprofen 400 MG TABLET PO (01:53)
[2021-12-12] MEDS: Acetaminophen 325 MG TABLET 975 MG PO (01:53)
--- NOTE | 2021-12-12 01:57 | PC.NURSE ---
pt medicated for pain and tdap prior to discharge. at bedside. no apparent distress
== END 2021-12-12 01:57 | disposition home or self-care (01) ==
PROVIDERS: Emergency Provider Student in an Organized Health Care Education/Training Program; PCP Internal Medicine
DX: S01.01XA Laceration without foreign body of scalp, initial encounter (principal); W11.XXXA Fall on and from ladder, initial encounter; Y93.9 Activity, unspecified; Y92.019 Unspecified place in single-family (private) house as the place of occurrence of the external cause; Y99.9 Unspecified external cause status
CPT/HCPCS: 12001; 36415; 70450; 72125; 80053; 82248; 83690; 84484; 85025; 85610; 90471; 90715; 93005; 99284

== ENCOUNTER 2022-04-02 09:41 | Outpatient (REF) | payer MEDICARE, SELFPAY ==
[2022-04-02 11:33] LABS: MANUAL DIFF FLAG NO
[2022-04-02 11:56] LABS: Basophils Percent Auto 0.7 % (0-2); Eosinophils Absolute Auto 0.2 X10*3/uL (0.0-0.4); Eosinophils Percent Auto 5.2 % (0-4); Hemoglobin 14.6 g/dl (12.0-16.0); Imm Gran Abs Auto 0.01 X10*3/uL (0.00-0.03); Imm Gran Pct Auto 0.2 % (0.0-0.4); Lymphocytes Absolute Auto 1.2 X10*3/uL (1.2-4.9); Lymphocytes Percent Auto 27.4 % (20-40); Mean Corpuscular HGB Conc 32.4 g/dl (31.0-35.0); Mean Corpuscular Hemoglobin 30.4 pg (27.0-33.0); Mean Corpuscular Volume 93.6 fL (80.0-98.0); Mean Platelet Volume 11.4 fL (9.4-12.3); Monocytes Absolute Auto 0.3 X10*3/uL (0.1-1.2); Monocytes Percent Auto 7.3 % (2-11); Neutrophils Absolute Auto 2.5 x10*3/uL (2.0-8.3); Neutrophils Percent Auto 59.2 % (45-73); Platelet Count 120 X10*3/uL (160-400); Red Blood Count 4.81 X10*6/uL (4.20-5.50); White Blood Count 4.2 X10*3/uL (4.8-10.8)
[2022-04-02 12:14] LABS: Alanine Aminotransferase 10 U/L (0-31); Albumin Level 4.4 g/dL (3.5-5.0); Alkaline Phosphatase 95 U/L (39-117); Anion Gap 13 (12-20); Aspartate Amino Transferase 20 U/L (5-31); Bilirubin Total 0.5 mg/dL (0.0-1.0); Blood Urea Nitrogen 13 mg/dL (9-16); Calcium 9.6 mg/dL (8.4-10.2); Carbon Dioxide 27 mmol/L (22-29); Chloride 110 mmol/L (96-108); Cholesterol 207 mg/dL; Estimated Glomerular Filt Rate 46; Glucose Fasting 90 mg/dL (60-99); HDL Cholesterol 82 mg/dL; LDL Cholesterol Calculated 104 mg/dl; Potassium 4.7 mmol/L (3.3-5.1); Sodium 145 mmol/L (135-145); Total Protein 6.8 g/dL (6.5-8.0); Triglycerides 106 mg/dL
[2022-04-02 12:31] LABS: TSH reflex Free T4 6.39 uIU/mL (0.32-4.0)
[2022-04-02 13:30] LABS: Free T4 (Free Thyroxine) 1.02 ng/dL (0.71-1.85)
== END 2022-04-02 09:42 | disposition home or self-care (01) ==
LOC: HO.HMGCLDS 09:41
PROVIDERS: PCP Internal Medicine; Visit Provider Internal Medicine
DX: D69.6 Thrombocytopenia, unspecified (principal); E03.8 Other specified hypothyroidism; F41.1 Generalized anxiety disorder; G47.9 Sleep disorder, unspecified; N28.9 Disorder of kidney and ureter, unspecified; E78.9 Disorder of lipoprotein metabolism, unspecified
CPT/HCPCS: 36415; 80053; 80061; 84439; 84443; 85025

== ENCOUNTER 2022-06-03 10:34 | Outpatient (REF) | payer MEDICARE, SELFPAY ==
--- NOTE | ~2022-06-03 | XR_ITS ---
EXAMINATION: XR CHEST CLINICAL INFORMATION: Acute bronchitis. COMPARISON: Chest x-ray 07/07/2009 TECHNIQUE: 2 views of the chest were obtained. FINDINGS: The lungs are well-expanded and clear of acute pneumonic process. Heart size and pulmonary vascularity is normal. No gross bony abnormality seen. 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
== END 2022-06-03 10:35 | disposition home or self-care (01) ==
LOC: HO.HMGCX 10:34
PROVIDERS: PCP Internal Medicine; Visit Provider Internal Medicine
DX: J20.9 Acute bronchitis, unspecified (principal)
CPT/HCPCS: 71046

== ENCOUNTER 2022-06-11 12:43 | Outpatient (REF) | payer MEDICARE, SELFPAY ==
--- NOTE | ~2022-06-11 | XR_ITS ---
EXAMINATION: Left foot and left ankle. CLINICAL INDICATIONS: Pain. COMPARISON: None. TECHNIQUE: 3 views left foot and 2 views left ankle. FINDINGS: LEFT FOOT: There is no visible acute fracture, dislocation or subluxation seen. No visible bony erosive changes. The soft tissues are normal. LEFT ANKLE: There is mild lateral malleolar soft tissues. The ankle mortise and subtalar joints are normal. A small calcaneal heel enthesophyte. XR/XR foot LT min 3V IMPRESSION: Small calcaneal heel enthesophyte. The left ankle is otherwise unremarkable. Unremarkable left foot exam.
--- NOTE | ~2022-06-11 | XR_ITS ---
EXAMINATION: Left foot and left ankle. CLINICAL INDICATIONS: Pain. COMPARISON: None. TECHNIQUE: 3 views left foot and 2 views left ankle. FINDINGS: LEFT FOOT: There is no visible acute fracture, dislocation or subluxation seen. No visible bony erosive changes. The soft tissues are normal. LEFT ANKLE: There is mild lateral malleolar soft tissues. The ankle mortise and subtalar joints are normal. A small calcaneal heel enthesophyte. XR/XR ankle LT min 3V IMPRESSION: Small calcaneal heel enthesophyte. The left ankle is otherwise unremarkable. Unremarkable left foot exam.
== END 2022-06-11 12:44 | disposition home or self-care (01) ==
LOC: HO.HMGCX 12:43
PROVIDERS: PCP Internal Medicine; Visit Provider Nurse Practitioner Family
DX: M25.572 Pain in left ankle and joints of left foot (principal)
CPT/HCPCS: 73610; 73630

== ENCOUNTER 2022-07-26 13:52 | Outpatient (REF) | payer MEDICARE, SELFPAY ==
--- NOTE | ~2022-07-26 | MM_ITS ---
EXAMINATION: MM SCREENING DIGITAL BREAST TOMOSYNTHESIS, BILATERAL CLINICAL INFORMATION: Screening. Asymptomatic. The lifetime risk of breast cancer based on the Tyrer-Cuzick Model is 2%. COMPARISON: Mammography: 05/28/2021, 05/27/2020, 01/13/2019 TECHNIQUE: Digital breast tomosynthesis is performed in both the craniocaudal and mediolateral oblique views along with computer-aided detection (CAD). Synthesized 2D images are generated from the tomosynthesis. FINDINGS: There are scattered areas of fibroglandular density (ACR BI-RADS breast composition Category b). There are no significant masses, abnormal calcifications, or other abnormalities. Parenchymal pattern is similar to prior studies. There is no developing density or architectural abnormality. The axilla and skin contours are unremarkable. No significant changes. MM/MM tomosynthesis screening BI IMPRESSION: No mammographic evidence of malignancy. ASSESSMENT: BI-RADS 1: Negative RECOMMENDATION: Routine annual mammography screening. This patient's information was entered into a reminder system with a target due date for their next mammogram.
== END 2022-07-26 13:53 | disposition home or self-care (01) ==
LOC: HO.MAMMO 13:52
PROVIDERS: PCP Internal Medicine; Visit Provider Internal Medicine
DX: Z12.31 Encounter for screening mammogram for malignant neoplasm of breast (principal)
CPT/HCPCS: 77063; 77067

== ENCOUNTER 2022-08-06 11:51 | Outpatient (REF) | payer MEDICARE, SELFPAY ==
[2022-08-06 14:05] LABS: MANUAL DIFF FLAG NO
[2022-08-06 14:12] LABS: Basophils Percent Auto 0.5 % (0-2); Eosinophils Absolute Auto 0.3 X10*3/uL (0.0-0.4); Eosinophils Percent Auto 5.6 % (0-4); Hematocrit 43.4 % (37.0-47.0); Imm Gran Abs Auto 0.02 X10*3/uL (0.00-0.03); Imm Gran Pct Auto 0.4 % (0.0-0.4); Lymphocytes Percent Auto 18.3 % (20-40); Mean Corpuscular HGB Conc 32.3 g/dl (31.0-35.0); Mean Corpuscular Hemoglobin 30.2 pg (27.0-33.0); Mean Corpuscular Volume 93.5 fL (80.0-98.0); Mean Platelet Volume 11.2 fL (9.4-12.3); Monocytes Absolute Auto 0.4 X10*3/uL (0.1-1.2); Monocytes Percent Auto 6.7 % (2-11); Neutrophils Absolute Auto 3.9 x10*3/uL (2.0-8.3); Neutrophils Percent Auto 68.5 % (45-73); Platelet Count 136 X10*3/uL (160-400); Red Blood Count 4.64 X10*6/uL (4.20-5.50); Red Cell Distribution Width 13.2 % (11.0-16.0); White Blood Count 5.7 X10*3/uL (4.8-10.8)
[2022-08-06 18:56] LABS: Alanine Aminotransferase 15 U/L (0-31); Albumin Level 4.2 g/dL (3.5-5.0); Alkaline Phosphatase 100 U/L (39-117); Anion Gap 15 (12-20); Aspartate Amino Transferase 28 U/L (5-31); Bilirubin Total 0.4 mg/dL (0.0-1.0); Blood Urea Nitrogen 11 mg/dL (9-16); Calcium 10.2 mg/dL (8.4-10.2); Carbon Dioxide 24 mmol/L (22-29); Chloride 109 mmol/L (96-108); Estimated Glomerular Filt Rate > 60; Glucose Random 84 mg/dL (60-115); Potassium 4.5 mmol/L (3.3-5.1); Sodium 143 mmol/L (135-145); Total Protein 7.1 g/dL (6.5-8.0)
[2022-08-06 19:02] LABS: TSH reflex Free T4 0.21 uIU/mL (0.32-4.0)
[2022-08-06 19:42] LABS: Free T4 (Free Thyroxine) 1.32 ng/dL (0.71-1.85)
== END 2022-08-06 11:52 | disposition home or self-care (01) ==
LOC: HO.HMGCLDS 11:51
PROVIDERS: PCP Internal Medicine; Visit Provider Internal Medicine
DX: E03.8 Other specified hypothyroidism (principal); E78.9 Disorder of lipoprotein metabolism, unspecified; F41.1 Generalized anxiety disorder; G47.9 Sleep disorder, unspecified
CPT/HCPCS: 36415; 80053; 84439; 84443; 85025

== ENCOUNTER 2022-08-16 11:54 | Emergency (ER) | payer MEDICARE, SELFPAY ==
--- NOTE | ~2022-08-16 | XR_ITS ---
EXAMINATION: XR ANKLE, LEFT CLINICAL INFORMATION: Left ankle pain, difficulty walking COMPARISON: None available. TECHNIQUE: AP, lateral, and mortise views of the left ankle. FINDINGS: No evidence for acute bony fracture or dislocation. There is joint space narrowing at the medial tibiotalar joint. No osteochondral lesions or erosions identified. XR/XR ankle LT min 3V IMPRESSION: No acute bony fracture or dislocation. Degenerative joint space narrowing at the medial tibiotalar joint.
--- NOTE | ~2022-08-16 | XR_ITS ---
EXAMINATION: XR FOOT, LEFT CLINICAL INFORMATION: Abdominal pain, difficulty walking COMPARISON: None available. TECHNIQUE: AP, lateral, and oblique views of the left foot. FINDINGS: The bones and soft tissues are normal. No fracture. Alignment is anatomic. Joint spaces are maintained. XR/XR foot LT min 3V IMPRESSION: Normal left foot.
--- NOTE | 2022-08-16 12:43 | ED.LOWEXIN ---
HPI - Extremity Injury (Lower) General Chief Complaint: Extremity Injury, Lower Stated Complaint: Sprained left ankle 2 months ago Time Seen by Provider: 08/16/22 13:53 Source: patient Mode of arrival: ambulatory Limitations: no limitations History of Present Illness HPI Narrative: Patient is a 76 year old assigned female at with a history of oral cancer presenting to the emergency department today with left ankle pain. Patient states that a month ago she hurt her left ankle and it has not gotten better. Patient denies any dizziness, lightheadedness, abdominal pain, nausea, vomiting, fever, chills, blurry vision, double vision, loss of vision, chest pain, difficulty breathing, shortness of breath, back pain, night sweats, pain with urination, increased urinary frequency, increased urinary urgency, blood in her urine or stool, syncope or a near syncopal episode, bowel incontinence, bladder incontinence, bowel retention, bladder retention, or any other complaints at this time. MD complaint: ankle injury Onset (ago): month(s) (1) Severity: mild Severity scale (1-10): 3 Relieving factors: nothing Exacerbating factors: weight bearing and movement Other symptoms: none Related Data Home Medications Medication Instructions Recorded Confirmed flu vacc 2020-21(65yr 0.5 ml IM DIRECTED 12/19/19 08/06/22 up)-MF59C(PF) 60 mcg(15 mcgx4)/0.5 mL IM syringe cetirizine 10 mg tablet (Zyrtec) 10 mg PO DAILY PRN 06/02/21 08/06/22 Previous Rx's Medication Instructions Recorded lovastatin 40 mg tablet 80 mg PO DAILY 90 days #180 tabs 05/07/22 sertraline 100 mg tablet 200 mg PO DAILY 90 days #180 tabs 05/07/22 trazodone 100 mg tablet 100 mg PO DAILY 90 days #90 tabs 08/06/22 levothyroxine 100 mcg tablet 100 mcg PO DAILY 90 days #90 tabs 08/09/22 Allergies Allergy/AdvReac Type Severity Reaction Status Date / Time No Known Drug Allergies Allergy Unknown Unknown Verified 08/16/22 12:43 Review of Systems Constitutional: Constitutional: Reports no additional constitutional complaints, Denies chills, Denies fever(s) and Denies night sweats Eyes: Eyes: Reports no additional eye complaints, Denies blurry vision, Denies change in vision, Denies diplopia, Denies eye discharge, Denies loss of vision and Denies eye pain ENT: Denies dizziness Cardiovascular: Cardiovascular: Reports no additional cardiovascular complaints, Denies chest pain, Denies lightheadedness, Denies Loss of Consciousness and Denies dyspnea Respiratory: Respiratory: Reports no additional respiratory complaints and Denies dyspnea Gastrointestinal: Gastrointestinal: Reports no additional gastrointestinal complaints, Denies abdominal pain, Denies melena, Denies hematochezia, Denies change in bowel habits and Denies change in stool character Genitourinary: Genitourinary: Denies hematuria, Denies urinary frequency, Denies dysuria, Denies urinary incontinence, Denies urinary hesitancy and Denies urinary urgency Musculoskeletal: Musculoskeletal: Reports no additional musculoskeletal complaints, Denies numbness and Denies tingling Comments: left ankle pain Neurologic: Denies dizziness, Denies loss of vision, Denies numbness and Denies tingling Psychiatric: Psychiatric: Reports no additional psychiatric complaints Endocrine: Endocrine: Reports no additional endocrine complaints Hematologic/Lymphatic: Hematologic/Lymphatic: Reports no additional hematologic/lymphatic complaints Allergic/Immunologic: Allergic/Immunologic: Reports no additional allergic/immunologic complaints [facility] Past Medical History Attestation statement: The following information was validated with the patient. Source: old records reviewed and nursing notes reviewed Medical History Anxiety, generalized Difficulty sleeping History of mouth cancer Lipid disorder Other specified hypothyroidism Pre-op evaluation Preoperative evaluation for tubal ligation Surgical History History of colonoscopy History of oral surgery History of rotator cuff surgery History of tonsillectomy Status post excisional biopsy Family History Family History Father HTN (hypertension) Mother Myocardial infarction Brother HTN (hypertension) Diabetes mellitus Son No problems noted. Daughter No problems noted. Brother No problems noted. Brother No problems noted. Sister No problems noted. Sister No problems noted. Son No problems noted. Social History Social History Housing: House Alcohol intake: current Alcohol intake frequency: holidays/special occasions only Alcohol type: beer Patient Tobacco Use Status: Former Tobacco user (quit 5 years ago ) Tobacco use type: Cigarette Cigarette Packs Per Day: 1 Years Smoked: 60 e-Cigarette/Vaping Use: Never Used Advance Directives: No Advance Directives Information Provided: Yes service: No Current occupational status: retired Cognitive needs: No Hearing needs: No Vision needs: No Physical Exam Vital Signs: Vital Signs: Last Vital Signs Temp 98 F 08/16/22 12:44 Pulse 59 08/16/22 12:44 Resp 18 08/16/22 12:44 BP 114/53 L 08/16/22 12:44 Pulse Ox 98 08/16/22 12:44 BMI result Body Mass Index 26.4 Const: General: cooperative, no acute distress, alert and awake Nutritional Appearance: well nourished Orientation/consciousness: patient oriented x3 Limitations: no limitations HEENT: Head: Yes normal to inspection and Yes atraumatic Ears: hearing grossly normal bilaterally and external ears normal General nose exam: Normal external nose present, no nasal discharge noted and no epistaxis Face and sinus: Yes normal facial exam, No abrasion and No laceration Mouth: Normal oral and palatal mucosa present, no drooling and no muffled voice Eyes: General: appearance normal, both eyes and all related structures Periorbital: periorbital findings normal Eyelids: Yes eyelids normal Conjunctivae: conjunctivae normal Pupils: Equal, round and reactive pupils present EOM: EOMs intact bilaterally Neck: Neck: Yes normal visual inspection, Yes full ROM and Yes no lymphadenopathy Chest: Chest palpation & inspection: normal inspection of the chest Resp: Effort & Inspection: normal respiratory effort and able to speak in complete sentences GI: Inspection: Yes normal to inspection Neuro: General: patient oriented x3 and moves all extremities Cranial nerves: Yes Equal, round and reactive pupils present Cognition (Neuro): normal cognition Motor exam (neuro): 5/5 motor strength present throughout Sensory Exam: Normal double simultaneous stimulation for sensation Coordination: [id number] test normal Extrem: Other: pain with palpation to the left lateral ankle and foot General: Yes normal to inspection, Yes full ROM and Yes capillary refill normal Psych: Appearance: grossly normal Mental Status: mental status grossly normal Affect: normal affect Attitude: cooperative Thought process: Normal thought process present Thought content: Normal thought content present Insight: Good insight present (Psych) Course Course Course Narrative: RME - 76 yo female presents to the ER for evaluation of left ankle and left foot pain that has been present for the last 2 months but got acutely worse today without any known injury. Hx sprain in May with normal x-rays and PCP has set her up with Ortho in 4 weeks due to ongoing pain. Can hardly walk on it today. Plan: repeat x-rays today Medical Decision Making Medical Decision Making MDM Narrative: Patient is a 76 year old assigned male at with a history of oral cancer presenting to the emergency department today with left foot and ankle pain. Patient's physical exam was as noted in the physical exam portion of this chart. Patient's left foot and ankle x-rays showed no acute process. I explained my physical exam findings as well as all test results to the patient. I answered all questions asked by the patient. Patient states that she has a walking boot at home but has not been wearing it because of how heavy it is. Patient states that she has an appointment with an orthopedic provider next month. I stressed the importance of the patient taking her medication as prescribed. I stressed the importance of the patient following up with her primary care provider and an orthopedic provider. I stressed the importance of the patient returning to the emergency department immediately if her symptoms were to worsen or if she were to develop any dizziness, shortness of breath, difficulty breathing, chest pain, blurry vision, loss of vision, nausea, vomiting, abdominal pain, fever, chills, back pain, or any other complaints. Patient verbalized agreement and understanding with this treatment plan and discharge. Differential Diagnosis Differential Diagnoses: The differential diagnosis associated with the presentation includes Left ankle sprain Left ankle strain Left foot sprain Left foot strain Left lower extremity pain Left lower extremit injury Independent Interpretation I performed an independent interpretation of an: Plain X-Ray Interpretation: My interpretation is in agreement with the radiologist's impression of these imaging studies. EXAMINATION: XR FOOT, LEFT CLINICAL INFORMATION: Abdominal pain, difficulty walking? COMPARISON: None available.? TECHNIQUE: AP, lateral, and oblique views of the left foot. FINDINGS: The bones and soft tissues are normal. No fracture. Alignment is anatomic. Joint spaces are maintained.? XR/XR foot LT min 3V IMPRESSION: Normal left foot. Dictated By: Manuel Paul MD Signed By: Electronically signed by Manuel Paul MD 08/16/22 1417 EXAMINATION: XR ANKLE, LEFT CLINICAL INFORMATION: Left ankle pain, difficulty walking? COMPARISON: None available.? TECHNIQUE: AP, lateral, and mortise views of the left ankle. FINDINGS: No evidence for acute bony fracture or dislocation. There is joint space narrowing at the medial tibiotalar joint. No osteochondral lesions or erosions identified.? XR/XR ankle LT min 3V IMPRESSION: No acute bony fracture or dislocation. Degenerative joint space narrowing at the medial tibiotalar joint. Dictated By: Raul Ortiz Signed By: Electronically signed by Shahana 08/16/22 1415 Radiology Impression Discussion of test interpretation with radiology: I have reviewed the radiologist's reading. Discharge Plan Discharge Clinical Impression: Foot sprain Patient Disposition: Home, Self-Care Instructions: Foot Sprain (ED), Walking Boot (ED) Additional Instructions: Follow up with your primary care provider and an orthopedic provider. Return to the emergency department immediately if your symptoms worsen or if you develop any dizziness, shortness of breath, difficulty breathing, chest pain, blurry vision, loss of vision, nausea, vomiting, abdominal pain, fever, chills, back pain, or any other complaints. Prescriptions: No Action lovastatin 40 mg tablet 80 mg PO DAILY 90 Days Qty: 180 1RF sertraline 100 mg tablet 200 mg PO DAILY 90 Days Qty: 180 1RF levothyroxine 100 mcg tablet 100 mcg PO DAILY 90 Days Qty: 90 1RF Fluad Quad 2020-21(65y up)(PF) 60 mcg (15 mcg x 4)/0.5 mL syringe 0.5 ml IM DIRECTED cetirizine [Zyrtec] 10 mg tablet 10 mg PO DAILY PRN trazodone 100 mg tablet 100 mg PO DAILY 90 Days Qty: 90 0RF Referrals: [facility] [place] [facility] [Provider Group] (Call and request an earlier appointment.) Maye Luna MD [Primary Care Provider] - Interventions: ED Discharge Assessment Last Done: 08/16/22 14:43 Discharge Date/Time: 08/16/22 14:45 Print Language: Armenian
[2022-08-16 12:44] VITALS: BP 114/53; PULSE 59; RESP 18; TEMP 36.6; O2SAT 98; BMI 26.4
== END 2022-08-16 14:45 | disposition home or self-care (01) ==
PROVIDERS: Emergency Provider Emergency Medicine; PCP Internal Medicine
DX: S93.602A Unspecified sprain of left foot, initial encounter (principal); X58.XXXA Exposure to other specified factors, initial encounter; Y93.9 Activity, unspecified; Y92.9 Unspecified place or not applicable; Y99.9 Unspecified external cause status
CPT/HCPCS: 73610; 73630; 99283; 99284

== ENCOUNTER 2022-09-06 13:33 | Outpatient (AMB) | payer MEDICARE, SELFPAY ==
--- NOTE | 2022-09-06 13:41 | A.OFFVIS_ITS ---
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 Patient reports when she was going to the bathroom her knees locked and caused her to fall. Having off and on sharp pain on the heel and radiates up to her hip. Denies numbness and tingling. 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 She was seen at ED where x-rays were performed. She states she has intermittent sharp pain and swelling in the heel of the left foot which radiates up to her hip. She denies any numbness or tingling. She has not undergone physical therapy in the past. [facility] Medical History Anxiety, generalized Difficulty sleeping History of mouth cancer Lipid disorder Other specified hypothyroidism Pre-op evaluation Preoperative evaluation for tubal ligation Surgical History History of colonoscopy History of oral surgery History of rotator cuff surgery History of tonsillectomy Status post excisional biopsy Family History Father HTN (hypertension) Mother Myocardial infarction Brother HTN (hypertension) Diabetes mellitus Son No problems noted. Daughter No problems noted. Brother No problems noted. Brother No problems noted. Sister No problems noted. Sister No problems noted. Son No problems noted. Social History Housing: House Alcohol intake: current Alcohol intake frequency: holidays/special occasions only Alcohol type: beer Patient Tobacco Use Status: Former Tobacco user (quit 5 years ago ) Tobacco use type: Cigarette Cigarette Packs Per Day: 1 Years Smoked: 60 e-Cigarette/Vaping Use: Never Used service: No Current occupational status: retired Cognitive needs: No Hearing needs: No Vision needs: No Review of Systems Const All systems reviewed & are unremarkable except as noted in HPI and below Physical Exam Vital Signs: BMI result Body Mass Index 26.4 Const General: cooperative, healthy appearing, comfortable, no acute distress, well developed and alert Orientation/consciousness: patient oriented x3 HEENT Head: Yes normal to inspection, Yes normocephalic and Yes atraumatic Eyes General: appearance normal, both eyes and all related structures Resp Effort & Inspection: normal respiratory effort and able to speak in complete sentences Cardio Rate: regular rate Peripheral pulses: Peripheral pulses 2+ throughout GI Palpation (GI): Soft to palpation Skin Lesions: no lesions Rashes: no rashes Neuro General: patient oriented x3 Extrem Other: Left foot: Normal to inspection. She does have tenderness over the lateral edge of the foot which extends over the top of the foot. She has weakness with dorsi and planar flexion when compared to the contralateral side. She also has some tenderness along the plantar fascia. No tenderness over the bony aspect of the medial and lateral malleolus. NVI. Results Reviewed Results Reviewed: xrays of the left foot are negative for acute fracture or dislocatiosn Assessment & Plan Assessment & Plan (1) Sprain of ankle, left: Code(s): S93.402A - Sprain of unspecified ligament of left ankle, initial encounter Plan We discussed options which include PT, NSAIDs and injections. The patient will defer on the injection today and proceed with PT and NSAIDs. If symptoms persist, the patient will contact me for an injection, otherwise, PRN. She was also given an ogff the shelf lace up ankle brace in the office today. Orders: Orders PT Evaluation and Treatment Today S93.402A - Sprain of unspecified ligament of left ankle, initial encounter Patient Instructions: Scribed for Roberto Huffman PA-C, by Homer Maldonado medical language specialist, on 09/06/2022 at 1:45 PM EST. I, Roberto Huffman PA-C, have personally reviewed and agree with the information entered by the scribe. Coding Level of Care Code New Pt Level 3 (24890) Diagnoses Sprain of ankle, left S93.402A
[2022-09-06 13:46] VITALS: BMI 26.4
== END 2022-09-06 14:26 | disposition home or self-care (01) ==
PROVIDERS: PCP Internal Medicine; Visit Provider Physician Assistant
DX: S93.402A Sprain of unspecified ligament of left ankle, initial encounter (principal)
CPT/HCPCS: 99203; 99213

== ENCOUNTER → 2022-09-06 13:33 | Outpatient (BNVA) | payer MEDICARE, SELFPAY | PROVIDERS: PCP Internal Medicine; Visit Provider Physician Assistant | DX: S93.402A Sprain of unspecified ligament of left ankle, initial encounter (principal) | CPT/HCPCS: 99202 ==

== ENCOUNTER 2022-10-05 13:00 | Outpatient (RCR) | payer MEDICARE, SELFPAY ==
--- NOTE | 2022-09-30 15:16 | MHC.PT.EP ---
[facility] [place] Office [place] Office [place] Office [address] [phone] F: [phone] F: [phone] F: [phone] F: [phone] Physical Therapy Plan of Care Date of Evaluation: Date of Surgery: Diagnosis: Sprain of ankle Left. Assessment: Pt is a 77 y/o female with a hx of cancer and neuropathy referred to physical therapy by her PCP for a L ankle sprain. Pt has difficulty maintaining balance, negotiating stairs, bending over, getting up from the floor, and performing ADLS secondary to LE weakness, decreased ankle ROM, loss of LE sensation, and pain. Pt is deemed an appropriate candidate for physical therapy as she is highly motivated to improve her pain and return to her previous level of function. Frequency and Duration: The patient will be seen 2x/wk x5 wks Short Term Goals: Initiate HEP Obtain SPC for ambulation Director Equipment Goals: [place] with HEP Independent ambulation with SPC [place] with reciprocal stair negotiation Pt will achieve at least neutral DF Treatment Plan: Modalities to reduce pain, spasms and effusion. Manual therapy to restore motion and function. Therapeutic exercise to improve strength and flexibility. Neuromuscular re-education for posture and balance. Therapeutic activities to return to functional activities of daily living. Electronically signed by: Garth Mayorga PT. Please sign and return to therapist. Thank you for your referral.
--- NOTE | 2022-10-13 11:02 | MHC.PT.DC ---
[facility] [place] Office [place] Office [place] Office [address] Michelle White [address] [phone] F: [phone] F: [phone] F: [phone] F: [phone] Physical Therapy Discharge Report Diagnosis: Sprain of ankle Left. Date of Surgery: Date of Evaluation: 09/30/22 Date of Discharge: Treatments to Date: 2 Cancellations to Date: No Shows to Date: Discharge Status: Patient Elected to Stop Discharge Summary: . Electronically signed by: Garth Mayorga PT Please sign and return to therapist. Thank you for your referral.
== END 2022-10-13 11:04 | disposition home or self-care (01) ==
LOC: HO.PTCHIC 13:00
PROVIDERS: PCP Internal Medicine; Visit Provider Physician Assistant
DX: S93.402A Sprain of unspecified ligament of left ankle, initial encounter (principal)
CPT/HCPCS: 97110; 97116; 97140; 97161; 97162

== ENCOUNTER 2022-10-26 12:29 | Outpatient (AMB) | payer MEDICARE, SELFPAY ==
--- NOTE | 2022-10-26 12:32 | A.OFFPC_ITS ---
Vital Signs 10/26/22 12:33 Height 5 ft 1 in Weight 146 lb BMI 27.6 BP 118/74 Blood Pressure Location Lt brachial Position Sitting Pulse 80 Pulse Source Pulse Oximeter Pulse Oximetry (%) 94 Oxygen Delivery Method Room Air Intake Visit Reasons: 3m follow up Allergies No Known Drug Allergies Allergy (Unknown, Verified 10/26/22 12:33) Unknown Medication List - Last Reconciled 10/26/22 by Maye Luna MD cetirizine (Zyrtec) 10 mg PO DAILY PRN flu vac 2020 [id number](PF) 60 mcg (15 mcg x 4)/0.5 mL 0.5 mL IM DIRECTED levothyroxine 100 mcg PO DAILY 90 days lovastatin 80 mg (2 x 40 mg) PO DAILY 90 days sertraline 200 mg (2 x 100 mg) PO DAILY 90 days trazodone 100 mg PO DAILY 90 days Tobacco use date assessed: 04/07/22 HPI 3m follow up HPI Details Patient is 77-year-old female this is a regular follow-up appointment. Patient has seen book sewer and was told that her peripheral neuropathy has gotten worse Years ago she had test done which showed mild peripheral neuropathy She is complaining of pain in her toes especially at night, I am prescribing gabapentin 100 mg capsule She is also on trazodone 100 mg patient was told to cut trazodone into half while she is taking the gabapentin. If she benefit from gabapentin she will get back to me so I can fill it for 90 days. ? Patient have squamous cell carcinoma of tongue currently patient is doing well and is stable Moods are stable with sertraline 200 mg Patient is on lovastatin 80 mg for lipid control Hypothyroidism: Patient's TSH was low last time we adjusted the dose to 100 mcg She is due for TSH check. Follow-up January [facility] Medical History Anxiety, generalized Difficulty sleeping History of mouth cancer Lipid disorder Other specified hypothyroidism Pre-op evaluation Preoperative evaluation for tubal ligation Surgical History History of colonoscopy History of oral surgery History of rotator cuff surgery History of tonsillectomy Status post excisional biopsy Family History Father HTN (hypertension) Mother Myocardial infarction Brother HTN (hypertension) Diabetes mellitus Son No problems noted. Daughter No problems noted. Brother No problems noted. Brother No problems noted. Sister No problems noted. Sister No problems noted. Son No problems noted. Social History Housing: House Alcohol intake: current Alcohol intake frequency: holidays/special occasions only Alcohol type: beer Patient Tobacco Use Status: Former Tobacco user (quit 5 years ago ) Tobacco use type: Cigarette Cigarette Packs Per Day: 1 Years Smoked: 60 e-Cigarette/Vaping Use: Never Used service: No Current occupational status: retired Cognitive needs: No Hearing needs: No Vision needs: No Questionnaire PHQ-9 Over the last 2 weeks, how often have you been bothered by any of the following problems? 1. Little interest or pleasure in doing things: not at all 2. Feeling down, depressed, or hopeless: not at all 3. Trouble falling or staying asleep, or sleeping too much: not at all 4. Feeling tired or having little energy: not at all 5. Poor appetite or overeating: not at all 6. Feeling bad about yourself - or that you are a failure or have let yourself or your family down: not at all 7. Trouble concentrating on things, such as reading the newspaper or watching television: not at all 8. Moving or speaking so slowly that other people could have noticed. Or the opposite - being so fidgety or restless that you have been moving around a lot more than usual: not at all 9. Thoughts that you would be better off or of hurting yourself in some way: not at all Total score: 0 Depression Screening Interpretation: Negative 82125 - PHQ-9 Billing: Yes Source: Developed by Drs. Yash Moy, Catarina Wills, Vipin Levy and colleagues, with an educational cristi from [employer]. Thrive Questionnaire Date Thrive assessed: 04/07/22 LINDA-7 AMB Questionnaire LINDA-7 Date LINDA - 7 assessed: 04/07/22 Source: Developed by Drs. Yash Moy, Catarina Wills, Vipin Levy and colleagues, with an educational cristi from [employer]. Review of Systems Const Denies chills and Denies fever(s) ENT Denies epistaxis and Denies nasal discharge Card Denies chest pain Resp Denies chest congestion, Denies cough and Denies hemoptysis GI Denies diarrhea and Denies nausea Skin/Breast Denies rash Neuro Reports no additional complaints Psych Reports no additional complaints Endo Reports no additional complaints Physical exam (Primary Care) Vital Signs: Last Vital Signs Pulse 80 10/26/22 12:33 BP 118/74 10/26/22 12:33 Pulse Ox 94 10/26/22 12:33 Oxygen Delivery Method Room Air 10/26/22 12:33 BMI result Body Mass Index 27.6 Tobacco/Smoking Status: Tobacco use Status Tobacco use date assessed 04/07/22 10/26/22 12:35 Patient Tobacco Use Status Former Tobacco user (quit 5 10/26/22 12:35 years ago ) Tobacco use type Cigarette 10/26/22 12:35 e-Cigarette/Vaping Use Never Used 10/26/22 12:35 Depression Screening Interpretation: Negative Thrive Assessment: Date of Thrive Assessment Date Thrive assessed 04/07/22 10/26/22 12:35 Const General: cooperative, comfortable and no acute distress Orientation/consciousness: patient oriented x3 HENMT Head: Yes normocephalic Eyes General: appearance normal, both eyes and all related structures Neck Neck: Yes supple Resp Effort & Inspection: normal respiratory effort, no cough and no stridor Cardio Rhythm: regular rhythm Heart sounds: S1 normal heart sound present and S2 normal heart sound present Skin General skin exam: turgor normal Neuro General: patient oriented x3, tone normal and moves all extremities Extrem Right lower extremity: no edema Left lower extremity: no edema Assessment and Plan Assessment & Plan (1) Peripheral neuropathy: Code(s): G62.9 - Polyneuropathy, unspecified Qualifiers: Peripheral neuropathy type: polyneuropathy, unspecified Qualified Code(s): G62.9 - Polyneuropathy, unspecified (2) Anxiety, generalized: Code(s): F41.1 - Generalized anxiety disorder (3) Difficulty sleeping: Code(s): G47.9 - Sleep disorder, unspecified (4) Other specified hypothyroidism: Code(s): E03.8 - Other specified hypothyroidism (5) Lipid disorder: Code(s): E78.9 - Disorder of lipoprotein metabolism, unspecified (6) Nephropathy: Code(s): N28.9 - Disorder of kidney and ureter, unspecified (7) Thrombocytopenia: Code(s): D69.6 - Thrombocytopenia, unspecified (8) Squamous cell carcinoma of mouth: Code(s): C06.9 - Malignant neoplasm of mouth, unspecified Plan Patient is 77-year-old female this is a regular follow-up appointment. Patient has seen book sewer and was told that her peripheral neuropathy has go tten worse Years ago she had test done which showed mild peripheral neuropathy She is complaining of pain in her toes especially at night, I am prescribing gabapentin 100 mg capsule She is also on trazodone 100 mg patient was told to cut trazodone into half while she is taking the gabapentin. If she benefit from gabapentin she will get back to me so I can fill it for 90 days. ? Patient have squamous cell carcinoma of tongue currently patient is doing well and is stable Moods are stable with sertraline 200 mg Patient is on lovastatin 80 mg for lipid control Hypothyroidism: Patient's TSH was low last time we adjusted the dose to 100 mcg She is due for TSH check. Follow-up January Orders: Orders Complete Blood Count Auto Diff Today D69.6 - Thrombocytopenia, unspecified, E03.8 - Other specified hypothyroidism, E78.9 - Disorder of lipoprotein metabolism, unspecified, F41.1 - Generalized anxiety disorder, G47.9 - Sleep disorder, unspecified, N28.9 - Disorder of kidney and ureter, unspecified Comprehensive Met. Panel Today D69.6 - Thrombocytopenia, unspecified, E03.8 - Other specified hypothyroidism, E78.9 - Disorder of lipoprotein metabolism, unspecified, F41.1 - Generalized anxiety disorder, G47.9 - Sleep disorder, unspecified, N28.9 - Disorder of kidney and ureter, unspecified TSH reflex Free T4 Today D69.6 - Thrombocytopenia, unspecified, E03.8 - Other specified hypothyroidism, E78.9 - Disorder of lipoprotein metabolism, unspecified, F41.1 - Generalized anxiety disorder, G47.9 - Sleep disorder, unspecified, N28.9 - Disorder of kidney and ureter, unspecified Medications: Refilled trazodone 100 mg PO DAILY 90 days 90 tabs 0RF lovastatin 80 mg (2 x 40 mg) PO DAILY 90 days 180 tabs 1RF trazodone 100 mg PO DAILY 90 days 90 tabs 0RF Coding Level of Care Code Est Pt Level 4 (72475) Diagnoses Peripheral neuropathy G62.9 Peripheral neuropathy type: polyneuropathy, unspecified Anxiety, generalized F41.1 Difficulty sleeping G47.9 Other specified hypothyroidism E03.8 Lipid disorder E78.9 Nephropathy N28.9 Thrombocytopenia D69.6 Squamous cell carcinoma of mouth C06.9
[2022-10-26 12:33] VITALS: BP 118/74; PULSE 80; O2SAT 94; BMI 27.6
== END 2022-10-26 16:11 | disposition home or self-care (01) ==
PROVIDERS: PCP Internal Medicine; Visit Provider Internal Medicine
DX: E03.8 Other specified hypothyroidism (principal); D69.6 Thrombocytopenia, unspecified; C06.9 Malignant neoplasm of mouth, unspecified; G62.9 Polyneuropathy, unspecified; F41.1 Generalized anxiety disorder; G47.9 Sleep disorder, unspecified; E78.9 Disorder of lipoprotein metabolism, unspecified; N28.9 Disorder of kidney and ureter, unspecified
CPT/HCPCS: 99214

== ENCOUNTER 2022-10-26 12:58 | Outpatient (REF) | payer MEDICARE, SELFPAY ==
[2022-10-26 16:02] LABS: MANUAL DIFF FLAG NO
[2022-10-26 16:28] LABS: Basophils Percent Auto 0.4 % (0-2); Eosinophils Absolute Auto 0.3 X10*3/uL (0.0-0.4); Eosinophils Percent Auto 5.4 % (0-4); Hemoglobin 13.2 g/dl (12.0-16.0); Imm Gran Abs Auto 0.01 X10*3/uL (0.00-0.03); Imm Gran Pct Auto 0.2 % (0.0-0.4); Lymphocytes Absolute Auto 0.9 X10*3/uL (1.2-4.9); Lymphocytes Percent Auto 17.4 % (20-40); Mean Corpuscular HGB Conc 32.2 g/dl (31.0-35.0); Mean Corpuscular Hemoglobin 29.7 pg (27.0-33.0); Mean Corpuscular Volume 92.3 fL (80.0-98.0); Mean Platelet Volume 10.5 fL (9.4-12.3); Monocytes Absolute Auto 0.3 X10*3/uL (0.1-1.2); Monocytes Percent Auto 5.9 % (2-11); Neutrophils Absolute Auto 3.8 x10*3/uL (2.0-8.3); Neutrophils Percent Auto 70.7 % (45-73); Platelet Count 140 X10*3/uL (160-400); Red Blood Count 4.44 X10*6/uL (4.20-5.50); White Blood Count 5.4 X10*3/uL (4.8-10.8)
[2022-10-26 16:49] LABS: Alanine Aminotransferase 10 U/L (0-31); Alkaline Phosphatase 93 U/L (39-117); Anion Gap 10 (12-20); Aspartate Amino Transferase 18 U/L (5-31); Bilirubin Total 0.3 mg/dL (0.0-1.0); Blood Urea Nitrogen 11 mg/dL (9-16); Calcium 9.6 mg/dL (8.4-10.2); Carbon Dioxide 27 mmol/L (22-29); Chloride 110 mmol/L (96-108); Estimated Glomerular Filt Rate 57; Glucose Random 104 mg/dL (60-115); Potassium 4.4 mmol/L (3.3-5.1); Sodium 143 mmol/L (135-145); Total Protein 6.6 g/dL (6.5-8.0)
[2022-10-26 17:07] LABS: TSH reflex Free T4 1.74 uIU/mL (0.32-4.0)
== END 2022-10-26 12:59 | disposition home or self-care (01) ==
LOC: HO.HMGCLDS 12:58
PROVIDERS: PCP Internal Medicine; Visit Provider Internal Medicine
DX: D69.6 Thrombocytopenia, unspecified (principal); E03.8 Other specified hypothyroidism; E78.9 Disorder of lipoprotein metabolism, unspecified; F41.1 Generalized anxiety disorder; G47.9 Sleep disorder, unspecified; N28.9 Disorder of kidney and ureter, unspecified
CPT/HCPCS: 36415; 80053; 84443; 85025

== ENCOUNTER 2023-02-02 12:45 | Outpatient (AMB) | payer MEDICARE, SELFPAY ==
[2023-02-02 12:52] VITALS: BP 112/64; PULSE 67; O2SAT 95; BMI 26.6
--- NOTE | 2023-02-02 12:52 | A.OFFPC_ITS ---
Vital Signs 3 02/02/23 12:52 Height 5 ft 1 in Weight 141 lb BMI 26.6 BP 112/64 Blood Pressure Location Rt brachial Position Sitting Pulse 67 Pulse Source Pulse Oximeter Pulse Oximetry (%) 95 Oxygen Delivery Method Room Air Intake Visit Reasons: 6m Allergies No Known Drug Allergies Allergy (Unknown, Verified 02/02/23 12:53) Unknown Medication List - Last Reconciled 02/02/23 by Maye Luna MD cetirizine (Zyrtec) 10 mg PO DAILY PRN levothyroxine 100 mcg PO DAILY 90 days lovastatin 80 mg (2 x 40 mg) PO DAILY 90 days sertraline 200 mg (2 x 100 mg) PO DAILY 90 days trazodone 100 mg PO DAILY 90 days Tobacco use date assessed: 02/02/23 Fall risk assessment: No Falls in past year Last assessed Fall Risk: 02/02/23 Dental Screening Dental Screen Date: 02/02/23 Did you have a dental visit in the last 12 months?: No Did you have a dental problem in the last 6 months where you did not have access to dental care?: No Was dental information given to patient?: No HPI 6m 2 HPI0 Details Patient is 77-year-old female this is a regular follow-up appointment. Patient has been having right lower quadrant pain off and on for the past 2 or 3 days On examination she is tender over right lower quadrant with palpation I have ordered stat CT scan to rule out appendicitis Patient has peripheral neuropathy I did prescribe gabapentin 100 mg but patient stopped taking it as she did not feel it was helping her She is taking trazodone 100 mg at night to sleep. ? Patient have squamous cell carcinoma of tongue currently patient is doing well and is stable Moods are stable with sertraline 200 mg Patient is on lovastatin 80 mg for lipid control Hypothyroidism: continue levothyroxine 100 mcg Patient had injury to her left ankle in October, she has seen orthopedic [facility] patient says that she continued to have lot of pain Not much was done for her at [facility] she would like to see [facility]. She will get back to me with the name of the doctor Follow-up 3 months [facility] Medical History Anxiety, generalized Difficulty sleeping History of mouth cancer Lipid disorder Other specified hypothyroidism Pre-op evaluation Preoperative evaluation for tubal ligation Surgical History History of colonoscopy History of oral surgery History of rotator cuff surgery History of tonsillectomy Status post excisional biopsy Family History Father HTN (hypertension) Mother Myocardial infarction Brother HTN (hypertension) Diabetes mellitus Son No problems noted. Daughter No problems noted. Brother No problems noted. Brother No problems noted. Sister No problems noted. Sister No problems noted. Son No problems noted. Social History Housing: House Alcohol intake: current Alcohol intake frequency: holidays/special occasions only Alcohol type: beer Patient Tobacco Use Status: Former Tobacco user (quit 5 years ago ) Tobacco use type: Cigarette Cigarette Packs Per Day: 1 Years Smoked: 60 e-Cigarette/Vaping Use: Never Used service: No Current occupational status: retired Cognitive needs: No Hearing needs: No Vision needs: No Questionnaire Thrive Questionnaire Date Thrive assessed: 04/07/22 AUDIT C Alcohol Use Questionnaire (AUDIT-C) 1. How often do you have a drink containing alcohol?: Monthly or less 2. How many drinks containing alcohol do you have on a typical day when you are drinking?: 1 or 2 3. How often do you have six or more drinks on one occasion?: Never Total Score: 1 Score Reviewed/Action Taken: Yes LINDA-7 AMB Questionnaire LINDA-7 Date LINDA - 7 assessed: 04/07/22 Source: Developed by Drs. Yash Moy, Catarina Wills, Vipin Levy and colleagues, with an educational cristi from [email or web address]. Review of Systems Const Denies chills and Denies fever(s) ENT Denies epistaxis and Denies nasal discharge Card Denies chest pain Resp Denies chest congestion, Denies cough and Denies hemoptysis GI Denies diarrhea and Denies nausea Skin/Breast Denies rash Neuro Reports no additional complaints Psych Reports no additional complaints Endo Reports no additional complaints Physical exam (Primary Care) Vital Signs: Last Vital Signs Pulse 67 02/02/23 12:52 BP 112/64 02/02/23 12:52 Pulse Ox 95 02/02/23 12:52 Oxygen Delivery Method Room Air 02/02/23 12:52 BMI result Body Mass Index 26.6 Tobacco/Smoking Status: Tobacco use Status Tobacco use date assessed 02/02/23 02/02/23 12:55 Patient Tobacco Use Status Former Tobacco user (quit 5 02/02/23 12:55 years ago ) Tobacco use type Cigarette 02/02/23 12:55 e-Cigarette/Vaping Use Never Used 02/02/23 12:55 Thrive Assessment: Date of Thrive Assessment Date Thrive assessed 04/07/22 02/02/23 12:55 Const General: cooperative, comfortable and no acute distress Orientation/consciousness: patient oriented x3 HENMT Head: Yes normocephalic Eyes General: appearance normal, both eyes and all related structures Neck Neck: Yes supple Resp Effort & Inspection: normal respiratory effort, no cough and no stridor Cardio Rhythm: regular rhythm Heart sounds: S1 normal heart sound present and S2 normal heart sound present GI Abdomen image: 2 1. Pain with palpation Skin General skin exam: turgor normal Neuro General: patient oriented x3, tone normal and moves all extremities Extrem Right lower extremity: no edema Left lower extremity: no edema Assessment and Plan Assessment & Plan (1) Right lower quadrant pain: Code(s): R10.31 - Right lower quadrant pain (2) Anxiety, generalized: Code(s): F41.1 - Generalized anxiety disorder (3) Mood disorder: Code(s): F39 - Unspecified mood [affective] disorder (4) Difficulty sleeping: Code(s): G47.9 - Sleep disorder, unspecified (5) Other specified hypothyroidism: Code(s): E03.8 - Other specified hypothyroidism (6) Lipid disorder: Code(s): E78.9 - Disorder of lipoprotein metabolism, unspecified (7) Nephropathy: Code(s): N28.9 - Disorder of kidney and ureter, unspecified (8) Thrombocytopenia: Code(s): D69.6 - Thrombocytopenia, unspecified (9) Squamous cell carcinoma of mouth: Code(s): C06.9 - Malignant neoplasm of mouth, unspecified (10) Peripheral neuropathy: Code(s): G62.9 - Polyneuropathy, unspecified Qualifiers: Peripheral neuropathy type: polyneuropathy, unspecified Qualified Code(s): G62.9 - Polyneuropathy, unspecified (11) Left ankle pain: Code(s): M25.572 - Pain in left ankle and joints of left foot Qualifiers: Chronicity: chronic Qualified Code(s): M25.572 - Pain in left ankle and joints of left foot; G89.29 - Other chronic pain Plan Patient is 77-year-old female this is a regular follow-up appointment. Patient has been having right lower quadrant pain off and on for the past 2 or 3 days On examination she is tender over right lower quadrant with palpation I have ordered stat CT scan to rule out appendicitis Patient has peripheral neuropathy I did prescribe gabapentin 100 mg but patient stopped taking it as she did not feel it was helping her She is taking trazodone 100 mg at night to sleep. ? Patient have squamous cell carcinoma of tongue currently patient is doing well and is stable Moods are stable with sertraline 200 mg Patient is on lovastatin 80 mg for lipid control Hypothyroidism: continue levothyroxine 100 mcg Patient had injury to her left ankle in October, she has seen orthopedic [facility] patient says that she continued to have lot of pain Not much was done for her at [facility] she would like to see [facility]. She will get back to me with the name of the doctor Follow-up 3 months Orders: Orders 2 CT abdomen pelvis w IV con Today R10.31 - Right lower quadrant pain Basic Metabolic Panel Today R10.31 - Right lower quadrant pain Medications: Refilled 2 trazodone 100 mg PO DAILY 90 tabs 1RF 90 days levothyroxine 100 mcg PO DAILY 90 tabs 1RF 90 days lovastatin 80 mg (2 x 40 mg) PO DAILY 180 tabs 1RF 90 days sertraline 200 mg (2 x 100 mg) PO DAILY 180 tabs 1RF 90 days Coding Level of Care Code Est Pt Level 5 (23292) Diagnoses Right lower quadrant pain R10.31 Anxiety, generalized F41.1 Mood disorder F39 Difficulty sleeping G47.9 Other specified hypothyroidism E03.8 Lipid disorder E78.9 Nephropathy N28.9 Thrombocytopenia D69.6 Squamous cell carcinoma of mouth C06.9 Peripheral polyneuropathy G62.9 Peripheral neuropathy type: polyneuropathy, unspecified Chronic pain of left ankle M25.572; G89.29 Chronicity: chronic
== END 2023-02-02 13:36 | disposition home or self-care (01) ==
PROVIDERS: PCP Internal Medicine; Visit Provider Internal Medicine
DX: R10.31 Right lower quadrant pain (principal); F39 Unspecified mood [affective] disorder; D69.6 Thrombocytopenia, unspecified; C06.9 Malignant neoplasm of mouth, unspecified; F41.1 Generalized anxiety disorder; G47.9 Sleep disorder, unspecified; E03.8 Other specified hypothyroidism; E78.9 Disorder of lipoprotein metabolism, unspecified; N28.9 Disorder of kidney and ureter, unspecified; G62.9 Polyneuropathy, unspecified; M25.572 Pain in left ankle and joints of left foot; G89.29 Other chronic pain
CPT/HCPCS: 99214

== ENCOUNTER 2023-02-02 14:00 | Outpatient (REF) | payer MEDICARE, SELFPAY ==
--- NOTE | ~2023-02-02 | CT_ITS ---
EXAMINATION: CT ABDOMEN AND PELVIS WITH CONTRAST CLINICAL INFORMATION: Right lower quadrant pain. Rule out appendicitis COMPARISON: Previous abdominal ultrasound February 2018 and pelvic ultrasound July 2017 TECHNIQUE: Multidetector volumetric images were obtained from the superior aspect of the liver through the pubic symphysis following administration 85 mL of Omnipaque 350 intravenous contrast. Sagittal and coronal reformatted images were obtained on the technologist's workstation. Oral contrast: Yes This CT examination was performed using dose optimization techniques as appropriate, variously including the following: *Automated exposure control *Adjustment of mA and/or kV according to patient size (this includes techniques or standardized protocols for targeted exams where dose is matched to indication/reason for exam; i.e. extremities or head) *Use of iterative reconstruction technique DLP: 390 mGy-cm FINDINGS: LUNG BASES: The visualized lung bases are unremarkable. LIVER, GALLBLADDER, AND BILIARY TREE: The liver is normal in size, shape, and attenuation. No focal hepatic lesion or biliary ductal dilatation is present. All stones. The gallbladder is otherwise normal. PANCREAS: Unremarkable. SPLEEN: Slightly enlarged spleen. Spleen measures 14.6 cm in AP dimension. ADRENAL GLANDS: Unremarkable. KIDNEYS AND URETERS: The kidneys are normal in size, shape, and attenuation. No hydronephrosis, hydroureter, or calculi seen. No perinephric stranding. BLADDER: Unremarkable. GASTROINTESTINAL TRACT: Stool throughout the colon suggestive of constipation. The small and large bowel are otherwise unremarkable. The appendix is unremarkable. ABDOMINAL WALL: No significant hernia is appreciated. LYMPH NODES: Normal. VASCULAR: Atherosclerotic disease. No aneurysm. PELVIC VISCERA: Unremarkable. OSSEOUS STRUCTURES: Degenerative changes of the spine. CT/CT abdomen pelvis w IV con IMPRESSION: Normal-appearing appendix. Stool throughout the colon suggestive of constipation. Gallstones. Slightly enlarged spleen. Fleischner guidelines were followed.
[2023-02-02 15:10] LABS: Anion Gap 13 (12-20); Blood Urea Nitrogen 14 mg/dL (9-16); Calcium 9.8 mg/dL (8.4-10.2); Carbon Dioxide 27 mmol/L (22-29); Chloride 107 mmol/L (96-108); Estimated Glomerular Filt Rate 49; Glucose Random 92 mg/dL (60-115); Potassium 4.9 mmol/L (3.3-5.1); Sodium 142 mmol/L (135-145)
[2023-02-02] MEDS: iohexoL 350 MG/ML 75 ML INFUS..BTL 85 ML IV (16:51)
[2023-02-02] MEDS: Barium Sulfate Oral (Berry) 450 ML ORAL.SUSP 675 ML PO (16:51)
== END 2023-02-02 14:01 | disposition home or self-care (01) ==
LOC: HO.CT 14:00
PROVIDERS: Visit Provider Internal Medicine
DX: R10.31 Right lower quadrant pain (principal)
CPT/HCPCS: 36415; 74177; 80048; Q9967

== ENCOUNTER 2023-02-22 12:45 | Outpatient (AMB) | payer MEDICARE, SELFPAY ==
--- NOTE | 2023-02-22 12:49 | A.OFFVIS_ITS ---
Intake Vital Signs 02/22/23 12:56 Height 5 ft 1 in Weight 141 lb BMI 26.6 BP 144/77 H Blood Pressure Location Rt radial Position Sitting Pulse 63 Intake Visit Reasons: Calculus of gallbladder Intake Note: This patient presents for an assessment for calculus of gallbladder. Patient c/o; reports intermittent RUQ pain, reports no postprandial nausea or vomiting, reports watery stools. Normalizer Required: No Accompanied by: Self / Same As Patient Allergies No Known Drug Allergies Allergy (Unknown, Verified 02/22/23 12:58) Unknown Medication List - Last Reconciled 02/22/23 by Corona Gonzalez MD cetirizine (Zyrtec) 10 mg PO DAILY PRN cholecalciferol (vitamin D3) 25 mcg PO DAILY levothyroxine 100 mcg PO DAILY 90 days lovastatin 80 mg (2 x 40 mg) PO DAILY 90 days sertraline 200 mg (2 x 100 mg) PO DAILY 90 days trazodone 100 mg PO DAILY 90 days HPI HPI Comments History of Present Illness Details 77-year-old female patient presenting wi th complaints of abdominal pain mainly in the right and left lower quadrant initially suspected to have appendicitis. A CT abdomen and pelvis was performed which revealed a normal appendix however gallstones were noted within the gallbladder. The patient is uncertain as to what makes the pain increase or decrease. She is aware of any increase with oral intake. She denies nausea, vomiting, fever or chills. Her bowels are generally loose. She denies fatty food intolerance. She reports a prior history of an oral cancer requiring reconstruction including abdominal graft from the lower abdomen to the floor of the mouth. [facility] Medical History Pre-op evaluation Preoperative evaluation for tubal ligation History of mouth cancer Lipid disorder Other specified hypothyroidism Difficulty sleeping Anxiety, generalized Surgical History Status post excisional biopsy History of colonoscopy History of rotator cuff surgery History of oral surgery History of tonsillectomy Family History Father HTN (hypertension) Mother Myocardial infarction Brother HTN (hypertension) Diabetes mellitus Son No problems noted. Daughter No problems noted. Brother No problems noted. Brother No problems noted. Sister No problems noted. Sister No problems noted. Son No problems noted. Social History Housing: House Alcohol intake: current Alcohol intake frequency: holidays/special occasions only Alcohol type: beer Patient Tobacco Use Status: Former Tobacco user (quit 5 years ago ) Tobacco use type: Cigarette Cigarette Packs Per Day: 1 Years Smoked: 60 e-Cigarette/Vaping Use: Never Used service: No Current occupational status: retired Cognitive needs: No Hearing needs: No Vision needs: No Review of Systems Const All systems reviewed & are unremarkable except as noted in HPI and below Physical Exam Vital Signs: Last Vital Signs Pulse 63 02/22/23 12:56 BP 144/77 H 02/22/23 12:56 BMI result Body Mass Index 26.6 Const General: cooperative and no acute distress Nutritional Appearance: well nourished Orientation/consciousness: patient oriented x3 Limitations: no limitations HEENT Head: Yes normocephalic and Yes atraumatic Ears: hearing grossly normal bilaterally Resp Effort & Inspection: normal respiratory effort, no audible wheezes, no cough and no respiratory distress Cardio Jugular venous distension: no JVD GI Inspection: Yes normal to inspection Palpation (GI): Soft to palpation, Tenderness to palpation present (GI) in the LLQ, in the RLQ and in the RUQ; Gonzalez's sign negative, no guarding, not rigid and No hepatosplenomegaly present Skin Other: Warm, dry, no rash Neuro General: patient oriented x3 Extrem General: Yes no clubbing, cyanosis or edema Assessment & Plan Assessment & Plan (1) Gallstones: Code(s): K80.20 - Calculus of gallbladder without cholecystitis without obstruction (2) Right lower quadrant pain: Code(s): R10.31 - Right lower quadrant pain Plan 77-year-old female patient presenting with atypical abdominal pain initially thought to be related to appendicitis however workup with CT is negative for acute appendicitis. Gallstones were noted however her symptoms are not necessarily consistent with cholecystitis. Recommended further evaluation with a HIDA scan. She will return following the study to review the results and discuss treatment options. Orders: Orders NM hepatobiliary w pharm Today K80.10 - Calculus of gallbladder with chronic cholecystitis without obstruction Coding Level of Care Code New Pt Level 4 (91774) Diagnoses Gallstones K80.20 Right lower quadrant pain R10.31
[2023-02-22 12:56] VITALS: BP 144/77; PULSE 63; BMI 26.6
== END 2023-02-22 13:14 | disposition home or self-care (01) ==
PROVIDERS: PCP Internal Medicine; Visit Provider Surgery
DX: K80.20 Calculus of gallbladder without cholecystitis without obstruction (principal); R10.31 Right lower quadrant pain
CPT/HCPCS: 99203

== ENCOUNTER → 2023-02-22 12:45 | Outpatient (BNVA) | payer MEDICARE, SELFPAY | PROVIDERS: PCP Internal Medicine; Visit Provider Surgery | DX: K80.20 Calculus of gallbladder without cholecystitis without obstruction (principal); R10.31 Right lower quadrant pain | CPT/HCPCS: 99202 ==

== ENCOUNTER → 2023-03-18 10:30 | Outpatient (REF) | payer MEDICARE, SELFPAY ==
--- NOTE | ~2023-03-18 | NM_ITS ---
EXAMINATION: BILIARY TRACT IMAGING STUDY WITH CCK CLINICAL INFORMATION: Calculus of gallbladder with chronic cholecystitis without obstruction. COMPARISON: CT of the abdomen and pelvis done on 02/02/2023.. TECHNIQUE: Serial gamma scintillation camera images were obtained over the abdomen for a total observation period of 60 minutes following the intravenous administration of 5.0 mCi Tc-99m mebrofenin. FINDINGS: There is good concentration of activity in the liver by 5 minutes post injection. Biliary activity is visualized by 10 minutes. The gallbladder is well visualized by 30 minutes. Small bowel is well visualized by 32 minutes. At 60 minutes post radiopharmaceutical injection, a 30-minute infusion of 1.3 micrograms Sincalide was then begun and an additional 40 minutes of images were obtained. There is good emptying of the gallbladder. By the end of the study there is good clearance of activity from the liver and visualization of diffuse small bowel activity. The calculated gallbladder ejection fraction is 83% (normal gallbladder ejection fraction is greater than 35%). NM/NM hepatobiliary w pharm IMPRESSION: Visualization of the gallbladder is evidence of a patent cystic duct and strong evidence against the diagnosis of acute cholecystitis. The common bile duct is patent. Gallbladder emptying and ejection fraction are normal. Liver function appears normal.
== END ==
LOC: HO.NUCMED 10:30
PROVIDERS: PCP Internal Medicine; Visit Provider Surgery
DX: K80.10 Calculus of gallbladder with chronic cholecystitis without obstruction (principal)
CPT/HCPCS: 78227; A9537; J2805

== ENCOUNTER 2023-03-24 10:15 | Outpatient (AMB) | payer MEDICARE, SELFPAY ==
[2023-03-24 10:31] VITALS: BP 100/56; PULSE 67; BMI 26.5
--- NOTE | 2023-03-24 10:31 | A.OFFVIS_ITS ---
Intake Vital Signs 03/24/23 10:31 Height 5 ft 1 in Weight 140 lb 2 oz BMI 26.5 BP 100/56 L Blood Pressure Location Lt brachial Position Sitting Pulse 67 Intake Visit Reasons: Abdominal pain, discuss HIDA scan results Intake Note: Patient is seen in office for HIDA scan results, following abdominal pain. Pt c/o: denies any changes since last visit, here for results HIDA:03/18/23 Compensation And Benefits Manager Required: No Accompanied by: Self / Same As Patient Allergies No Known Drug Allergies Allergy (Unknown, Verified 03/24/23 10:32) Unknown Medication List - Last Reconciled 03/24/23 by Corona Gonzalez MD cetirizine (Zyrtec) 10 mg PO DAILY PRN cholecalciferol (vitamin D3) 25 mcg PO DAILY levothyroxine 100 mcg PO DAILY 90 days lovastatin 80 mg (2 x 40 mg) PO DAILY 90 days sertraline 200 mg (2 x 100 mg) PO DAILY 90 days trazodone 100 mg PO DAILY 90 days HPI HPI Comments History of Present Illness Details 77-year-old female patient presenting wi th complaints of abdominal pain mainly in the right and left lower quadrant initially suspected to have appendicitis. A CT abdomen and pelvis was performed which revealed a normal appendix however gallstones were noted within the gallbladder. The patient is uncertain as to what makes the pain increase or decrease. She is aware of any increase with oral intake. She denies nausea, vomiting, fever or chills. Her bowels are generally loose. She denies fatty food intolerance. She reports a prior history of an oral cancer requiring reconstruction including abdominal graft from the lower abdomen to the floor of the mouth. Patient recently underwent evaluation with a HIDA scan to further evaluate the gallbladder functioning. This revealed normal filling and emptying of the gallbladder with a normal ejection fraction. This essentially ruled out the gallbladder as a cause of her abdominal pain. [facility], [facility] Medical History Pre-op evaluation Preoperative evaluation for tubal ligation History of mouth cancer Lipid disorder Other specified hypothyroidism Difficulty sleeping Anxiety, generalized Surgical History Status post excisional biopsy History of colonoscopy History of rotator cuff surgery History of oral surgery History of tonsillectomy Family History Father HTN (hypertension) Mother Myocardial infarction Brother HTN (hypertension) Diabetes mellitus Son No problems noted. Daughter No problems noted. Brother No problems noted. Brother No problems noted. Sister No problems noted. Sister No problems noted. Son No problems noted. Social History Housing: House Alcohol intake: current Alcohol intake frequency: holidays/special occasions only Alcohol type: beer Patient Tobacco Use Status: Former Tobacco user (quit 5 years ago ) Tobacco use type: Cigarette Cigarette Packs Per Day: 1 Years Smoked: 60 e-Cigarette/Vaping Use: Never Used service: No Current occupational status: retired Cognitive needs: No Hearing needs: No Vision needs: No Review of Systems Const All systems reviewed & are unremarkable except as noted in HPI and below Physical Exam Vital Signs: Last Vital Signs Pulse 67 03/24/23 10:31 BP 100/56 L 03/24/23 10:31 BMI result Body Mass Index 26.5 Const General: cooperative and no acute distress Nutritional Appearance: well nourished Orientation/consciousness: patient oriented x3 Limitations: no limitations HEENT Head: Yes normocephalic and Yes atraumatic Ears: hearing grossly normal bilaterally Resp Effort & Inspection: normal respiratory effort, no audible wheezes, no cough and no respiratory distress Cardio Jugular venous distension: no JVD GI Inspection: Yes normal to inspection Palpation (GI): Soft to palpation, Tenderness to palpation present (GI) in the LLQ, in the RLQ and in the RUQ; Gonzalez's sign negative, no guarding, not rigid and No hepatosplenomegaly present Skin Other: Warm, dry, no rash Neuro General: patient oriented x3 Extrem General: Yes no clubbing, cyanosis or edema Assessment & Plan Assessment & Plan (1) Gallstones: Code(s): K80.20 - Calculus of gallbladder without cholecystitis without obstruction (2) Right lower quadrant pain: Code(s): R10.31 - Right lower quadrant pain Plan 77-year-old female patient presenting with atypical abdominal pain initially thought to be related to appendicitis however workup with CT is negative for acute appendicitis. Gallstones were noted however her symptoms are not necessarily consistent with cholecystitis. Subsequent HIDA scan revealed normal functioning of the gallbladder without evidence of obstruction or dyskinesia. Her symptoms may be related to IBS which she was diagnosed once before by Dr. Escalante. I recommended follow-up with Dr. Escalante should the symptoms worsen. She expressed understanding and agrees with the plan. Coding Level of Care Code Est Pt Level 3 (45774) Diagnoses Gallstones K80.20 Right lower quadrant pain R10.31
== END 2023-03-24 11:06 | disposition home or self-care (01) ==
PROVIDERS: PCP Internal Medicine; Visit Provider Surgery
DX: K80.20 Calculus of gallbladder without cholecystitis without obstruction (principal); R10.31 Right lower quadrant pain
CPT/HCPCS: 99213

== ENCOUNTER → 2023-03-24 10:15 | Outpatient (BNVA) | payer MEDICARE, SELFPAY | PROVIDERS: PCP Internal Medicine; Visit Provider Surgery | DX: R10.31 Right lower quadrant pain (principal); K80.20 Calculus of gallbladder without cholecystitis without obstruction | CPT/HCPCS: 99212 ==

== ENCOUNTER 2023-05-04 11:18 | Outpatient (AMB) | payer MEDICARE, SELFPAY ==
[2023-05-04 11:22] VITALS: BP 106/54; PULSE 61; O2SAT 97; BMI 27.1
--- NOTE | 2023-05-04 11:22 | MHC.PC.OV ---
Vital Signs 05/04/23 11:22 Height 5 ft 1 in Weight 143 lb 4 oz BMI 27.1 BP 106/54 L Blood Pressure Location Lt brachial Position Sitting Pulse 61 Pulse Source Pulse Oximeter Pulse Oximetry (%) 97 Oxygen Delivery Method Room Air Intake Visit Reasons: 9m follow up Allergies No Known Drug Allergies Allergy (Unknown, Verified 05/04/23 11:22) Unknown Medication List - Last Reconciled 05/04/23 by Maye Luna MD cetirizine (Zyrtec) 10 mg PO DAILY PRN cholecalciferol (vitamin D3) 25 mcg PO DAILY levothyroxine 100 mcg PO DAILY 90 days lovastatin 80 mg (2 x 40 mg) PO DAILY 90 days sertraline 200 mg (2 x 100 mg) PO DAILY 90 days trazodone 100 mg PO DAILY 90 days Tobacco use date assessed: 05/04/23 Fall risk assessment: 2 + Falls in past year Last assessed Fall Risk: 05/04/23 Dental Screening Dental Screen Date: 05/04/23 Did you have a dental visit in the last 12 months?: No Did you have a dental problem in the last 6 months where you did not have access to dental care?: No Was dental information given to patient?: Patient has dentist HPI 9m follow up HPI Details Patient is 77-year-old female this is a regular follow-up appointment. Patient continued to have paresthesia lower extremity Also having weakness in her legs now which is getting worse Patient says that the other day she was in a grocery store she squat down to picker feeder something from lower shelf and she could not get up I have ordered EMG nerve conduction study Patient need to be evaluated by Neurology, referral placed I did prescribe gabapentin 100 mg in the past which did not help patient We can try 300 mg but I would rather have her see neurologist 1st She is taking trazodone 100 mg at night to sleep. ? Patient have squamous cell carcinoma of tongue currently patient is doing well and is stable Moods are stable with sertraline 200 mg Patient is on lovastatin 80 mg for lipid control Hypothyroidism: continue levothyroxine 100 mcg Her abdominal symptoms has resolved She has appointment for Medicare wellness in July labs are needed before visit fasting Follow-up 3 months [facility] Medical History Pre-op evaluation Preoperative evaluation for tubal ligation History of mouth cancer Lipid disorder Other specified hypothyroidism Difficulty sleeping Anxiety, generalized Surgical History Status post excisional biopsy History of colonoscopy History of rotator cuff surgery History of oral surgery History of tonsillectomy Family History Father HTN (hypertension) Mother Myocardial infarction Brother HTN (hypertension) Diabetes mellitus Son No problems noted. Daughter No problems noted. Brother No problems noted. Brother No problems noted. Sister No problems noted. Sister No problems noted. Son No problems noted. Social History Housing: House Alcohol intake: current Alcohol intake frequency: holidays/special occasions only Alcohol type: beer Patient Tobacco Use Status: Former Tobacco user (quit 5 years ago ) Tobacco use type: Cigarette Cigarette Packs Per Day: 1 Years Smoked: 60 e-Cigarette/Vaping Use: Never Used service: No Current occupational status: retired Cognitive needs: No Hearing needs: No Vision needs: No Questionnaire Thrive Questionnaire Date Thrive assessed: 04/07/22 AUDIT C Alcohol Use Questionnaire (AUDIT-C) 1. How often do you have a drink containing alcohol?: Monthly or less 2. How many drinks containing alcohol do you have on a typical day when you are drinking?: 1 or 2 3. How often do you have six or more drinks on one occasion?: Never Total Score: 1 Score Reviewed/Action Taken: Yes LINDA-7 AMB Questionnaire LINDA-7 Date LINDA - 7 assessed: 04/07/22 Source: Developed by Drs. Yash Moy, Catarina Wills, Vipin Levy and colleagues, with an educational cristi from [employer]. Review of Systems Const Denies chills and Denies fever(s) ENT Denies epistaxis and Denies nasal discharge Card Denies chest pain Resp Denies chest congestion, Denies cough and Denies hemoptysis GI Denies diarrhea and Denies nausea Skin/Breast Denies rash Neuro Reports no additional complaints Psych Reports no additional complaints Endo Reports no additional complaints Physical exam (Primary Care) Vital Signs: Last Vital Signs Pulse 61 05/04/23 11:22 BP 106/54 L 05/04/23 11:22 Pulse Ox 97 05/04/23 11:22 Oxygen Delivery Method Room Air 05/04/23 11:22 BMI result Body Mass Index 27.1 Tobacco/Smoking Status: Tobacco use Status Tobacco use date assessed 05/04/23 05/04/23 11:28 Patient Tobacco Use Status Former Tobacco user (quit 5 05/04/23 11:28 years ago ) Tobacco use type Cigarette 05/04/23 11:28 e-Cigarette/Vaping Use Never Used 05/04/23 11:28 Thrive Assessment: Date of Thrive Assessment Date Thrive assessed 04/07/22 05/04/23 11:28 Const General: cooperative, comfortable and no acute distress Orientation/consciousness: patient oriented x3 HENMT Head: Yes normocephalic Eyes General: appearance normal, both eyes and all related structures Neck Neck: Yes supple Resp Effort & Inspection: normal respiratory effort, no cough and no stridor Cardio Rhythm: regular rhythm Heart sounds: S1 normal heart sound present and S2 normal heart sound present Skin General skin exam: turgor normal Neuro Other: Having difficulty standing without support from chair General: patient oriented x3, tone normal and moves all extremities Extrem Right lower extremity: no edema Left lower extremity: no edema Assessment and Plan Assessment & Plan (1) Other specified hypothyroidism: Code(s): E03.8 - Other specified hypothyroidism (2) Lipid disorder: Code(s): E78.9 - Disorder of lipoprotein metabolism, unspecified (3) Difficulty sleeping: Code(s): G47.9 - Sleep disorder, unspecified (4) Anxiety, generalized: Code(s): F41.1 - Generalized anxiety disorder (5) Oral cancer: Code(s): C06.9 - Malignant neoplasm of mouth, unspecified (6) Nephropathy: Code(s): N28.9 - Disorder of kidney and ureter, unspecified (7) Thrombocytopenia: Code(s): D69.6 - Thrombocytopenia, unspecified (8) Mood disorder: Code(s): F39 - Unspecified mood [affective] disorder (9) Peripheral neuropathy: Code(s): G62.9 - Polyneuropathy, unspecified Qualifiers: Peripheral neuropathy type: polyneuropathy, unspecified Qualified Code(s): G62.9 - Polyneuropathy, unspecified (10) Vertigo: Code(s): R42 - Dizziness and giddiness (11) Leg weakness, bilateral: Code(s): R29.898 - Other symptoms and signs involving the musculoskeletal system Plan Patient is 77-year-old female this is a regular follow-up appointment. Patient continued to have paresthesia lower extremity Also having weakness in her legs now which is getting worse Patient says that the other day she was in a grocery store she squat down to picker feeder something from lower shelf and she could not get up I have ordered EMG nerve conduction study Patient need to be evaluated by Neurology, referral placed I did prescribe gabapentin 100 mg in the past which did not help patient We can try 300 mg but I would rather have her see neurologist 1st She has started having vertigo again, patient had physical therapy in the past which did help She is requesting order for physical therapy again She is taking trazodone 100 mg at night to sleep. ? Patient have squamous cell carcinoma of tongue currently patient is doing well and is stable Moods are stable with sertraline 200 mg Patient is on lovastatin 80 mg for lipid control Hypothyroidism: continue levothyroxine 100 mcg Her abdominal symptoms has resolved She has appointment for Medicare wellness in July labs are needed before visit fasting Follow-up 3 months Orders: Orders Complete Blood Count Auto Diff Today C06.9 - Malignant neoplasm of mouth, unspecified, D69.6 - Thrombocytopenia, unspecified, E03.8 - Other specified hypothyroidism, E78.9 - Disorder of lipoprotein metabolism, unspecified, F39 - Unspecified mood [affective] disorder, F41.1 - Generalized anxiety disorder, G47.9 - Sleep disorder, unspecified, N28.9 - Disorder of kidney and ureter, unspecified Comprehensive [place]. Panel Fast Today C06.9 - Malignant neoplasm of mouth, unspecified, D69.6 - Thrombocytopenia, unspecified, E03.8 - Other specified hypothyroidism, E78.9 - Disorder of lipoprotein metabolism, unspecified, F39 - Unspecified mood [affective] disorder, F41.1 - Generalized anxiety disorder, G47.9 - Sleep disorder, unspecified, N28.9 - Disorder of kidney and ureter, unspecified Lipid Panel Today C06.9 - Malignant neoplasm of mouth, unspecified, D69.6 - Thrombocytopenia, unspecified, E03.8 - Other specified hypothyroidism, E78.9 - Disorder of lipoprotein metabolism, unspecified, F39 - Unspecified mood [affective] disorder, F41.1 - Generalized anxiety disorder, G47.9 - Sleep disorder, unspecified, N28.9 - Disorder of kidney and ureter, unspecified TSH reflex Free T4 Today C06.9 - Malignant neoplasm of mouth, unspecified, D69.6 - Thrombocytopenia, unspecified, E03.8 - Other specified hypothyroidism, E78.9 - Disorder of lipoprotein metabolism, unspecified, F39 - Unspecified mood [affective] disorder, F41.1 - Generalized anxiety disorder, G47.9 - Sleep disorder, unspecified, N28.9 - Disorder of kidney and ureter, unspecified NE electromyogram (EMG) Today G62.9 - Polyneuropathy, unspecified NE nerve conduction velocity Today G62.9 - Polyneuropathy, unspecified PT Evaluation and Treatment Today R42 - Dizziness and giddiness Referrals Neurology Referral G62.9 - Polyneuropathy, unspecified Coding Level of Care Code Est Pt Level 4 (61502) Diagnoses Other specified hypothyroidism E03.8 Lipid disorder E78.9 Difficulty sleeping G47.9 Anxiety, generalized F41.1 Oral cancer C06.9 Nephropathy N28.9 Thrombocytopenia D69.6 Mood disorder F39 Peripheral polyneuropathy G62.9 Peripheral neuropathy type: polyneuropathy, unspecified Vertigo R42 Leg weakness, bilateral R29.898
== END 2023-05-04 12:31 | disposition home or self-care (01) ==
PROVIDERS: PCP Internal Medicine; Visit Provider Internal Medicine
DX: E03.8 Other specified hypothyroidism (principal); D69.6 Thrombocytopenia, unspecified; C06.9 Malignant neoplasm of mouth, unspecified; F39 Unspecified mood [affective] disorder; E78.9 Disorder of lipoprotein metabolism, unspecified; G47.9 Sleep disorder, unspecified; F41.1 Generalized anxiety disorder; N28.9 Disorder of kidney and ureter, unspecified; G62.9 Polyneuropathy, unspecified; R42 Dizziness and giddiness; R29.898 Other symptoms and signs involving the musculoskeletal system
CPT/HCPCS: 99214

== ENCOUNTER 2023-05-25 11:00 | Outpatient (RCR) | payer MEDICARE, SELFPAY ==
[2023-05-24 12:45] VITALS: BP 116/78; PULSE 61; O2SAT 95
--- NOTE | 2023-05-24 13:55 | MHC.PT.EP ---
[facility] Office [place] Office [place] Office [address] [place] [address] [address] White [address] [phone] F: [phone] F: [phone] F: [phone] F: [phone] Physical Therapy Plan of Care Date of Evaluation: 05/24/23 Date of Surgery: Diagnosis: This is a 77 yo female presenting to skilled PT with a script for vertigo. Assessment: This is a 77 yo female presenting to skilled PT with a script for vertigo. Patient reporting symptoms for over 15 years, every now and then it acts up and it is acting up now. Her symptoms increased about 3 weeks ago now when she got up out of bed and noticed her symptoms. Symptoms increase with turning her head, getting up at night, and looking up. Driving does not bother. Symptoms are described as shaky . Patient has a past medical history of oral cancer and she had a surgery that involved the L ear. She has not had any falls from the dizziness. She was here twice in 2021 and was + for vertigo. Examination shows normal oculomotor tests, (-) VBI B, and mildly decreased cervical AROM. She was (+) for BPPV with suma-hallpike and L suha maneuver which was improved s/p tx. Patient was categorized as a falls risk with all balance at eval but also states her baseline is poor as well. PT plans to reassess and assess all additional canals next session. S/S consistent with L PC BPPV and would benefit from PT 2x/wk for 4wks to address impairments, implement HEP and optimize functional mobility. Frequency and Duration: The patient will be seen 2x/wk for 4wks Short Term Goals: NA Detention Goals: I in HEP No nystagmus or symptoms in any testing positions No LOB noted and normal scores on balance tests Treatment Plan: Modalities to reduce pain, spasms and effusion. Manual therapy to restore motion and function. Therapeutic exercise to improve strength and flexibility. Neuromuscular re-education for posture and balance. Therapeutic activities to return to functional activities of daily living. Electronically signed by: Vivian Romero PT Please sign and return to therapist. Thank you for your referral.
--- NOTE | 2023-06-29 11:38 | MHC.PT.DC ---
[facility] [place] [facility] [place] Office [place] Office [address] Michelle White [address] [phone] F: [phone] F: [phone] F: [phone] F: [phone] Physical Therapy Discharge Report Diagnosis: This is a 77 yo female presenting to skilled PT with a script for vertigo. Date of Surgery: Date of Evaluation: 05/24/23 Date of Discharge: 06/29/23 Treatments to Date: 2 Cancellations to Date: 0 No Shows to Date: 0 Discharge Status: Achieved Goals Improved Function Independent with HEP Discharge Summary: 05/24: Patient with improved symptoms, performed an assessment B and performed 2 reps for precautionary measures of suha on the L for PC. No nystagmus noted. Reviewed balance which was improved since yesterday but still off at baseline. Reviewed oculomotor/tracking and provided HEP for VOR at home. Educated her on 2 options: coming to the next appointment on the for one more check or cancelling and keeping chart open for 30 days. Patient ended up cancelling and chart was closed after 30 days Electronically signed by: Vivian Romero PT Please sign and return to therapist. Thank you for your referral.
== END 2023-06-29 11:39 | disposition home or self-care (01) ==
LOC: HO.PTCHIC 11:00
PROVIDERS: PCP Internal Medicine; Visit Provider Internal Medicine
DX: H81.10 Benign paroxysmal vertigo, unspecified ear (principal)
CPT/HCPCS: 95992; 97110; 97112; 97162

== ENCOUNTER 2023-06-21 11:47 | Outpatient (REF) | payer MEDICARE, SELFPAY ==
[2023-06-22 19:39] LABS: Lyme Abs Screen <0.90 index
== END 2023-06-21 11:48 | disposition home or self-care (01) ==
LOC: HO.HMGCLDS 11:47
PROVIDERS: PCP Internal Medicine; Visit Provider Psychiatry & Neurology Neurology
DX: G62.9 Polyneuropathy, unspecified (principal)
CPT/HCPCS: 36415; 82550; 86617; 86618

== ENCOUNTER 2023-07-22 12:35 | Outpatient (REF) | payer MEDICARE, SELFPAY | END 2023-07-22 12:36 | disposition home or self-care (01) | LOC: HO.NEURO 12:35 | PROVIDERS: PCP Internal Medicine; Visit Provider Internal Medicine | DX: Z13.89 Encounter for screening for other disorder (principal) ==

== ENCOUNTER 2023-08-01 12:12 | Outpatient (REF) | payer MEDICARE, SELFPAY | END 2023-08-01 12:13 | disposition home or self-care (01) | LOC: HO.MAMMO 12:12 | PROVIDERS: PCP Internal Medicine; Visit Provider Internal Medicine | DX: Z12.31 Encounter for screening mammogram for malignant neoplasm of breast (principal) | CPT/HCPCS: 77063; 77067 ==

== ENCOUNTER → 2023-08-01 12:30 | Outpatient (BNV) | payer MEDICARE, SELFPAY | PROVIDERS: PCP Internal Medicine; Visit Provider Radiology Diagnostic Radiology | DX: Z12.31 Encounter for screening mammogram for malignant neoplasm of breast (principal) | CPT/HCPCS: 77063; 77067 ==

== ENCOUNTER 2023-08-08 10:01 | Outpatient (REF) | payer MEDICARE, SELFPAY ==
[2023-08-08 13:19] LABS: MANUAL DIFF FLAG NO
[2023-08-08 13:41] LABS: Basophils Absolute Auto 0.1 X10*3/uL (0.0-0.2); Eosinophils Absolute Auto 0.4 X10*3/uL (0.0-0.4); Hematocrit 41.8 % (37.0-47.0); Hemoglobin 13.8 g/dl (12.0-16.0); Imm Gran Abs Auto 0.02 X10*3/uL (0.00-0.03); Imm Gran Pct Auto 0.4 % (0.0-0.4); Lymphocytes Absolute Auto 1.1 X10*3/uL (1.2-4.9); Lymphocytes Percent Auto 22.1 % (20-40); Mean Corpuscular Hemoglobin 31.2 pg (27.0-33.0); Mean Corpuscular Volume 94.4 fL (80.0-98.0); Mean Platelet Volume 10.9 fL (9.4-12.3); Monocytes Absolute Auto 0.3 X10*3/uL (0.1-1.2); Monocytes Percent Auto 6.6 % (2-11); Neutrophils Absolute Auto 3.2 x10*3/uL (2.0-8.3); Neutrophils Percent Auto 62.9 % (45-73); Platelet Count 127 X10*3/uL (160-400); Red Blood Count 4.43 X10*6/uL (4.20-5.50); Red Cell Distribution Width 13.4 % (11.0-16.0); White Blood Count 5.1 X10*3/uL (4.8-10.8)
[2023-08-08 14:09] LABS: Alanine Aminotransferase 15 U/L (0-31); Albumin Level 4.2 g/dL (3.5-5.0); Alkaline Phosphatase 94 U/L (39-117); Anion Gap 13 (12-20); Aspartate Amino Transferase 25 U/L (5-31); Bilirubin Total 0.3 mg/dL (0.0-1.0); Blood Urea Nitrogen 16 mg/dL (9-16); Calcium 9.5 mg/dL (8.4-10.2); Carbon Dioxide 25 mmol/L (22-29); Chloride 110 mmol/L (96-108); Cholesterol 175 mg/dL (<200); Estimated Glomerular Filt Rate 58; Glucose Fasting 83 mg/dL (60-99); HDL Cholesterol 66 mg/dL (>40); LDL Cholesterol Calculated 90 mg/dL (<100); Potassium 4.5 mmol/L (3.3-5.1); Sodium 143 mmol/L (135-145); TSH reflex Free T4 1.26 uIU/mL (0.32-4.0); Triglycerides 98 mg/dL (<150)
== END 2023-08-08 10:02 | disposition home or self-care (01) ==
LOC: HO.HMGCLDS 10:01
PROVIDERS: PCP Internal Medicine; Visit Provider Internal Medicine
DX: E03.8 Other specified hypothyroidism (principal); E78.9 Disorder of lipoprotein metabolism, unspecified; G47.9 Sleep disorder, unspecified; F41.1 Generalized anxiety disorder; C06.9 Malignant neoplasm of mouth, unspecified; N28.9 Disorder of kidney and ureter, unspecified; D69.6 Thrombocytopenia, unspecified; F39 Unspecified mood [affective] disorder
CPT/HCPCS: 36415; 80053; 80061; 84443; 85025

== ENCOUNTER 2023-08-10 11:21 | Outpatient (AMB) | payer MEDICARE, SELFPAY ==
--- NOTE | 2023-08-10 11:24 | A.OFFVIS_ITS ---
Intake Vital Signs 08/10/23 11:26 Height 5 ft 1 in Weight 142 lb BMI 26.8 BP 112/80 Blood Pressure Location Lt brachial Position Sitting Pulse 62 Pulse Source Pulse Oximeter Pulse Oximetry (%) 98 Oxygen Delivery Method Room Air Intake Visit Reasons: swv Allergies No Known Drug Allergies Allergy (Unknown, Verified 08/10/23 11:26) Unknown Medication List - Last Reconciled 08/10/23 by Maye Luna MD cetirizine (Zyrtec) 10 mg PO DAILY PRN cholecalciferol (vitamin D3) 25 mcg PO DAILY levothyroxine 100 mcg PO DAILY 90 days lovastatin 80 mg (2 x 40 mg) PO DAILY 90 days sertraline 200 mg (2 x 100 mg) PO DAILY 90 days trazodone 100 mg PO DAILY 90 days Do you need a note to return to daycare/school/sports/work: No HPI swv HPI Details Patient is 77-year-old female this is a regular follow-up appointment. And Medicare wellness visit Patient continued to have paresthesia lower extremity Also having weakness in her legs now which is getting worse, patient says that it gets worse when she is walking I will be booking her appointment with vascular specialist She is taking trazodone 100 mg at night to sleep. ? Patient have squamous cell carcinoma of tongue currently patient is doing well and is stable Moods are stable with sertraline 200 mg Patient is on lovastatin 80 mg for lipid control Hypothyroidism: continue levothyroxine 100 mcg Labs done recently reviewed Follow-up 3 months HPI Comments History of Present Illness Details AWV Medical/social history reviewed Past medical history reviewed [place] of care / care team list updated Surgical/ hospitalization history reviewed Current medications including OTC and supplements reviewed Family history reviewed Tobacco controlled form updated Alcohol use form updated Illicit drug use in social history reviewed Current diagnosis of depression ?screening updated Appropriate PHQ 2/PHQ-9 completed . Vital signs reviewed Alcohol tobacco drug use reviewed and discussed . MMSE completed . ? Fall risk: ?Assessed Fall history: ?None Have you had any falls with injury in the past year?? No Have you had 2 or more falls in the past year?? No Fall risk assessment completed Home safety discussed with the patient Functional ability assessed and discussed and documented Activities of daily living reviewed and appropriate actions taken . HRA filled out by the patient and reviewed by provider and scanned . Appropriate written screening schedule established . Any health advise needed provided . Advance care planning discussed with the patient MOLST forms filled [changed from last year, patient declared herself DNR this visit] Examination IPPE/AWE: Balance intact Romberg failed Tandem walk failed walk-in turn intact rise from sit to stand Failed . ?Hearing ?whisper test pass . Medication list reviewed, patient is stable on medications All other providers patient is seeing discussed and noted . [facility] Medical History Pre-op evaluation Preoperative evaluation for tubal ligation History of mouth cancer Lipid disorder Other specified hypothyroidism Difficulty sleeping Anxiety, generalized Surgical History Status post excisional biopsy History of colonoscopy History of rotator cuff surgery History of oral surgery History of tonsillectomy Family History Father HTN (hypertension) Mother Myocardial infarction Brother HTN (hypertension) Diabetes mellitus Son No problems noted. Daughter No problems noted. Brother No problems noted. Brother No problems noted. Sister No problems noted. Sister No problems noted. Son No problems noted. Social History Housing: House Alcohol intake: current Alcohol intake frequency: holidays/special occasions only Alcohol type: beer Patient Tobacco Use Status: Former Tobacco user (quit 5 years ago ) Tobacco use type: Cigarette Cigarette Packs Per Day: 1 Years Smoked: 60 e-Cigarette/Vaping Use: Never Used service: No Current occupational status: retired Cognitive needs: No Hearing needs: No Vision needs: No Questionnaire Medicare Wellness Checkup [age] What gender do you identify with?: female During the past 4 weeks, how much have you been bothered by emotional problems such as feeling anxious, depressed, irritable, sad or downhearted, and blue?: not at all During the past 4 weeks, has your physical & emotional health limited your social activities with family, friends, neighbors, or groups?: not at all During the past 4 weeks, how much bodily pain have you generally had?: mild pain During the past 4 weeks, was someone available to help you if you needed & wanted help?: no, not at all During the past 4 weeks, what was the hardest physical activity you could do for at least 2 minutes?: moderate Can you get to places out of walking distance without help? (For eg., can you travel alone on buses, taxis or drive your car?): Yes Can you go shopping for groceries or clothes without someone's help?: Yes Can you prepare your own meals?: No Can you do your housework without help?: Yes Because of any health problems, do you need the help of another person with your personal care needs such as eating, bathing, dressing or getting around the house?: No Can you handle your own money without help?: Yes During the past 4 weeks, how would you rate your health in general?: fair During the past 4 weeks how have things been going for you?: pretty well Do you always fasten your seat belt when you are in a car?: yes, usually During past 4 weeks, have you been bothered by the following: never: Falling or dizzy when standing up, Sexual problems?, Trouble eating well? and Problems u sing the telephone?, sometimes: Teeth or denture problems? and often: Tiredness or fatigue? Have you fallen 2 or more times in the past year?: Yes Are you afraid of falling?: Yes Are you a smoker?: no During the past 4 weeks, how many drinks of wine, beer, or other alcoholic beverages did you have?: no alcohol at all Do you exercise for about 20 minutes 3 or more times a week?: no, I usually do not exercise this much Have you been given information to help with the following?: no: Hazards in your house that might hurt you? and no: Keeping track of your medications? How often do you have trouble taking medicines the way you have been told to take them?: I always take medicine as prescribed How confident are you that you can control & manage most of your health problems?: very confident What is your race?: White Mini Mental State Exam (MMSE) Orientation What is the (year) (season) (date) (day) (month)?: year, season, date, day and month Where are we (state) (county) (town or city) (hospital) (floor)?: state, county, town or city, hospital/clinic and floor Score Score: 10 Activity of Daily Living Bathing - sponge bath, tub bath or shower: receives no assistance (gets in/out by self, if usual bathing means Dressing - getting clothes from closets & drawers, including inner/outer garments & fasteners.: gets clothes & gets completely dressed without help Toileting - going to the 'toilet room' for urine/bowel elimination & cleaning self/arranging clothes: goes to toilet room, cleans self, arranges clothes without help Transfer: moves in & out of bed and chair without help (may use support object) Continence: controls urination/bowel movements completely by self Feeding: feeds self without help Total Score: 0 Information obtained from: patient Using telephone: independent Traveling: independent Shopping: independent Preparing meals: independent Housework: independent Taking medicine: independent Managing money: independent PHQ-9 Over the last 2 weeks, how often have you been bothered by any of the following problems? 1. Little interest or pleasure in doing things: not at all 2. Feeling down, depressed, or hopeless: not at all 3. Trouble falling or staying asleep, or sleeping too much: not at all 4. Feeling tired or having little energy: several days 5. Poor appetite or overeating: not at all 6. Feeling bad about yourself - or that you are a failure or have let yourself or your family down: not at all 7. Trouble concentrating on things, such as reading the newspaper or watching television: not at all 8. Moving or speaking so slowly that other people could have noticed. Or the opposite - being so fidgety or restless that you have been moving around a lot more than usual: not at all 9. Thoughts that you would be better off or of hurting yourself in some way: not at all Total score: 1 Depression Screening Interpretation: Negative Depression Screening Done: Yes 03552 - PHQ-9 Billing: Yes Source: Developed by Drs. Yash Moy, Catarina Wills, Vipin Levy and colleagues, with an educational cristi from [employer]. Review of Systems Const Denies chills and Denies fever(s) ENT Denies epistaxis and Denies nasal discharge Card Denies chest pain Resp Denies chest congestion, Denies cough and Denies hemoptysis GI Denies diarrhea and Denies nausea Skin/Breast Denies rash Neuro Reports no additional complaints Psych Reports no additional complaints Endo Reports no additional complaints Physical Exam Vital Signs: Last Vital Signs Pulse 62 08/10/23 11:26 BP 112/80 08/10/23 11:26 Pulse Ox 98 08/10/23 11:26 Oxygen Delivery Method Room Air 08/10/23 11:26 BMI result Body Mass Index 26.8 Const General: cooperative, comfortable and no acute distress Orientation/consciousness: patient oriented x3 HEENT Head: Yes normocephalic Eyes General: appearance normal, both eyes and all related structures Neck Other: Supple Neck: Yes supple Resp Effort & Inspection: normal respiratory effort, no cough and no stridor Cardio Rhythm: regular rhythm Heart sounds: S1 normal heart sound present and S2 normal heart sound present Skin General skin exam: turgor normal Neuro Other: Motor sensory intact General: patient oriented x3, tone normal and moves all extremities Extrem Other: No lower extremity swelling. Right lower extremity: no edema Left lower extremity: no edema Psych Other: Normal effect, speech clear Assessment & Plan Assessment & Plan (1) Medicare annual wellness visit, subsequent: Code(s): Z00.00 - Encounter for general adult medical examination without abnormal findings (2) Claudication of both lower extremities: Code(s): I73.9 - Peripheral vascular disease, unspecified (3) Other specified hypothyroidism: Code(s): E03.8 - Other specified hypothyroidism (4) Anxiety, generalized: Code(s): F41.1 - Generalized anxiety disorder (5) Difficulty sleeping: Code(s): G47.9 - Sleep disorder, unspecified (6) Lipid disorder: Code(s): E78.9 - Disorder of lipoprotein metabolism, unspecified (7) Leg weakness, bilateral: Code(s): R29.898 - Other symptoms and signs involving the musculoskeletal system (8) DNR no code (do not resuscitate): Code(s): Z66 - Do not resuscitate Plan Patient is 77-year-old female this is a regular follow-up appointment. And Medicare wellness visit Patient continued to have paresthesia lower extremity Also having weakness in her legs now which is getting worse, patient says that it gets worse when she is walking I will be booking her appointment with vascular specialist She is taking trazodone 100 mg at night to sleep. ? Patient have squamous cell carcinoma of tongue currently patient is doing well and is stable Moods are stable with sertraline 200 mg Patient is on lovastatin 80 mg for lipid control Hypothyroidism: continue levothyroxine 100 mcg Labs done recently reviewed Follow-up 3 months Orders: Referrals Vascular Surgery Referral I73.9 - Peripheral vascular disease, unspecified Medications: Refilled levothyroxine 100 mcg PO DAILY 90 tabs 1RF 90 days lovastatin 80 mg (2 x 40 mg) PO DAILY 180 tabs 1RF 90 days sertraline 200 mg (2 x 100 mg) PO DAILY 180 tabs 1RF 90 days trazodone 100 mg PO DAILY 90 tabs 1RF 90 days Quality Reporting (2019) Depression/Bipolar (159/160/161/177) PHQ-9: Total score: 1 Coding Level of Care Code Medicare Subsequent (G0439) Est Pt Level 4 (98431) Diagnoses Medicare annual wellness visit, subsequent Z00.00 Claudication of both lower extremities I73.9 Other specified hypothyroidism E03.8 Anxiety, generalized F41.1 Difficulty sleeping G47.9 Lipid disorder E78.9 Leg weakness, bilateral R29.898 DNR no code (do not resuscitate) Z66 CPT Codes Advance Care Planning - Time spent: 1-15 minutes, not on file ([id number]) Advance Care Planning Advance Care Planning discussion: Completed/Scanned Forms completed: ARTHUR Time spent: 1-15 minutes, not on file Actual minutes spent: 13
[2023-08-10 11:26] VITALS: BP 112/80; PULSE 62; O2SAT 98; BMI 26.8
== END 2023-08-10 11:59 | disposition home or self-care (01) ==
PROVIDERS: PCP Internal Medicine; Visit Provider Internal Medicine
DX: Z00.00 Encounter for general adult medical examination without abnormal findings (principal); I73.9 Peripheral vascular disease, unspecified; E03.8 Other specified hypothyroidism; F41.1 Generalized anxiety disorder; G47.9 Sleep disorder, unspecified; E78.9 Disorder of lipoprotein metabolism, unspecified; R29.898 Other symptoms and signs involving the musculoskeletal system; Z66 Do not resuscitate
CPT/HCPCS: 1124F; 99214; G0439

== ENCOUNTER 2023-10-13 13:12 | Outpatient (AMB) | payer MEDICARE, SELFPAY ==
[2023-10-13 13:16] VITALS: BMI 26.8
--- NOTE | 2023-10-13 13:16 | A.OFFVIS_ITS ---
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 Pt states she also has neuropathy. Pt states she has pains/throbbing in her feet and legs w/ or without ambulation. Bottom of her feet are painful. 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 She continues to have lower extremity paresthesias and difficulty getting up from a sitting position. She has difficulty kneeling as well. She denies any back pain. She is able to walk a few blocks with no difficulty. She now presents to us for vascular evaluation. Of note she quit smoking about 9 years prior. She does have oral cancer which turned out to be squamous cell carcinoma of the tongue. She appears to be stable from that perspective. She now presents to us for vascular eval. [facility] Medical History Pre-op evaluation Preoperative evaluation for tubal ligation History of mouth cancer Lipid disorder Other specified hypothyroidism Difficulty sleeping Anxiety, generalized Surgical History Status post excisional biopsy History of colonoscopy History of rotator cuff surgery History of oral surgery History of tonsillectomy Family History Father HTN (hypertension) Mother Myocardial infarction Brother HTN (hypertension) Diabetes mellitus Son No problems noted. Daughter No problems noted. Brother No problems noted. Brother No problems noted. Sister No problems noted. Sister No problems noted. Son No problems noted. Social History Housing: House Alcohol intake: current Alcohol intake frequency: holidays/special occasions only Alcohol type: beer Patient Tobacco Use Status: Former Tobacco user (quit 5 years ago ) Tobacco use type: Cigarette Cigarette Packs Per Day: 1 Years Smoked: 60 e-Cigarette/Vaping Use: Never Used service: No Current occupational status: retired Cognitive needs: No Hearing needs: No Vision needs: No Review of Systems Const All systems reviewed & are unremarkable except as noted in HPI and below Reports no additional complaints ENT Reports Normal hearing present Card Denies chest pain, Denies chest pain at rest, Denies chest pain with activity and Denies pedal edema Resp Denies cough GI Denies abdominal pain Musc Denies abnormal gait, Denies muscle cramps and Denies radiating pain into limb Skin/Breast Denies skin ulcer and Denies wounds Neuro Reports Normal hearing present and Denies abnormal gait Psych Reports no additional complaints Physical Exam Vital Signs: BMI result Body Mass Index 26.8 Const General: cooperative, healthy appearing and comfortable Orientation/consciousness: oriented to person, oriented to place and oriented to time HEENT Head: Yes normal to inspection Neck Neck: Yes normal visual inspection Carotids: no bruits Chest Chest palpation & inspection: normal inspection of the chest Resp Effort & Inspection: normal respiratory effort and able to speak in complete sentences Auscultation: clear to auscultation bilaterally, no crackles, no rales, no rhonchi and no wheezes Cardio Other: Palpable posterior tibials diminished Rate: regular rate Rhythm: regular rhythm Heart sounds: S1 normal heart sound present and S2 normal heart sound present Bruits: no carotid bruits Peripheral pulses: Peripheral pulses 2+ throughout GI Inspection: Yes normal to inspection Skin Wounds: no wounds Hair: normal Neuro General: oriented to person, oriented to place and oriented to time Cranial nerves: Yes CN's II-XII intact bilaterally and Yes Normal hearing present Cognition (Neuro): normal cognition Motor exam (neuro): 5/5 motor strength present throughout Extrem Other: venous exam: No significant superficial varicosities or spider telangiectasias, minimal edema General: No clubbing, No cyanosis and No edema Psych Appearance: grossly normal Mental Status: mental status grossly normal Speech and movement: Normal speech and movement present Assessment & Plan Assessment & Plan (1) PAD (peripheral artery disease): Code(s): I73.9 - Peripheral vascular disease, unspecified Category: Medical Plan: In short patient has lower extremity pain and discomfort. Unclear what the etiology of this is. She does not have difficulty ambulating and appears to be more from a kneeling sitting position. This appears to be more arthritic in nature. I did take the liberty of ordering arterial testing to rule that out. She will follow up with us after testing. Thank you for allowing us to assist in her care. Please note a longitudinal relationship has been created with the patient and we have been following and surveillance this chronic condition. (2) Encounter for abdominal aortic aneurysm (AAA) screening: Code(s): Z13.6 - Encounter for screening for cardiovascular disorders Category: Medical Plan: Due to her smoking history will require aortic screening Orders: Orders US arterial duplex LE BI 1 Week I73.9 - Peripheral vascular disease, unspecified US abdominal aortic aneurysm 1 Week Z13.6 - Encounter for screening for cardiovascular disorders Coding Level of Care Code New Pt Level 4 (61706) Complex EM visit Add On G2211 Diagnoses PAD (peripheral artery disease) I73.9 Encounter for abdominal aortic aneurysm (AAA) screening Z13.6
== END 2023-10-13 13:43 | disposition home or self-care (01) ==
PROVIDERS: PCP Internal Medicine; Visit Provider Surgery Vascular Surgery
DX: I73.9 Peripheral vascular disease, unspecified (principal); Z13.6 Encounter for screening for cardiovascular disorders
CPT/HCPCS: 99203; G2211

== ENCOUNTER → 2023-10-13 13:12 | Outpatient (BNVA) | payer MEDICARE, SELFPAY | PROVIDERS: PCP Internal Medicine; Visit Provider Surgery Vascular Surgery | DX: I73.9 Peripheral vascular disease, unspecified (principal); Z13.6 Encounter for screening for cardiovascular disorders | CPT/HCPCS: 99202 ==

== ENCOUNTER 2023-10-26 13:19 | Outpatient (REF) | payer MEDICARE, SELFPAY ==
--- NOTE | ~2023-10-26 | US_ITS ---
EXAMINATION: NONINVASIVE ANKLE BRACHIAL INDICES OF BOTH LOWER EXTREMITIES CLINICAL INFORMATION: Peripheral vascular disease.. COMPARISON: None. TECHNIQUE: Ankle-brachial indices were calculated bilaterally and PVR tracings were performed at the level of the ankles. This study was performed at rest only. FINDINGS: a) AT REST: 1. The ankle-brachial indices are: Right (PT) 0.92 and left (PT) 0.99. >0.97-1.25 = normal - no significant arterial disease. 0.75-0.96 = mild peripheral arterial disease. 0.5-0.74 = moderate peripheral arterial disease. <0.50 = severe peripheral arterial disease. 2. PVR waveforms at ankle: Unremarkable. US/US arterial duplex BI w/ RADHA IMPRESSION: 1. The right ankle-brachial index is consistent with mild peripheral arterial disease. 2. The left ankle-brachial index is within the normal range. Electronically signed by: Corona Power MD 10/29/2023 12:45 AM EDT
--- NOTE | ~2023-10-26 | US_ITS ---
EXAMINATION: US RETROPERITONEAL LIMITED (AORTA) CLINICAL INFORMATION: Encounter for screening for cardiovascular disorders. COMPARISON: Ultrasound abdomen 02/27/2018. TECHNIQUE: Grayscale, color Doppler and spectral Doppler evaluation of the abdominal aorta. FINDINGS: There is atherosclerotic plaque in the aorta without evidence of aneurysm The measurements of the aorta in maximum AP and transverse dimensions respectively are as follows: Proximal: 2.8 x 2.7 cm. Mid: 2.0 x 1.4 cm. Distal: 1.6 x 1.6 cm. PSV: 70.5 cm/s. The measurements of the common iliac arteries are as follows: Right: AP: 0.9 cm. TRV: 1.0 cm. Left: AP: 0.8 cm. TRV: 0.9 cm. US/US aorta IMPRESSION: No evidence of abdominal aortic aneurysm. Electronically signed by: Clifford Gamez MD 10/29/2023 08:58 AM EDT
== END 2023-10-26 13:20 | disposition home or self-care (01) ==
LOC: HO.US 13:19
PROVIDERS: PCP Internal Medicine; Visit Provider Surgery Vascular Surgery
DX: I73.9 Peripheral vascular disease, unspecified (principal); Z13.6 Encounter for screening for cardiovascular disorders
CPT/HCPCS: 76775; 93922; 93925

== ENCOUNTER 2023-11-02 11:50 | Outpatient (AMB) | payer MEDICARE, SELFPAY ==
--- NOTE | 2023-11-02 11:54 | A.OFFPC_ITS ---
Vital Signs 11/02/23 11:57 Height 5 ft 1 in Weight 141 lb BMI 26.6 BP 118/70 Blood Pressure Location Lt brachial Position Sitting Pulse 62 Pulse Source Pulse Oximeter Pulse Oximetry (%) 97 Oxygen Delivery Method Room Air Intake Visit Reasons: 3M F/U Allergies No Known Drug Allergies Allergy (Unknown, Verified 11/02/23 11:58) Unknown Medication List - Last Reconciled 11/02/23 by Maye Luna MD cetirizine (Zyrtec) 10 mg PO DAILY PRN cholecalciferol (vitamin D3) 25 mcg PO DAILY levothyroxine 100 mcg PO DAILY 90 days lovastatin 80 mg (2 x 40 mg) PO DAILY 90 days sertraline 200 mg (2 x 100 mg) PO DAILY 90 days trazodone 100 mg PO DAILY 90 days Tobacco use date assessed: 05/04/23 Dental Screening Dental Screen Date: 05/04/23 HPI 3M F/U HPI Details Patient is 77-year-old female this is a regular follow-up appointment. Labs were done July again Patient continued to have pain in her left lower extremity X-ray done of her ankle in the past showed osteoarthritic changes She is also seeing vascular specialist Dr. Bojorquez and had ultrasound done Which showed slight vascular problem in the right leg but not in the left with the pain is I am starting her on Celebrex 100 mg once a day with breakfast Patient will update me how she is feeling with this medication in couple of weeks For paresthesia lower extremity patient has already seen neurology and had EMG n erve conduction study which was negative She has also tried gabapentin which did not help She is taking trazodone 100 mg at night to sleep. ? Patient have squamous cell carcinoma of tongue currently patient is doing well and is stable Moods are stable with sertraline 200 mg Patient is on lovastatin 80 mg for lipid control Hypothyroidism: continue levothyroxine 100 mcg Follow-up 3 months [facility] Medical History Pre-op evaluation Preoperative evaluation for tubal ligation History of mouth cancer Lipid disorder Other specified hypothyroidism Difficulty sleeping Anxiety, generalized Surgical History Status post excisional biopsy History of colonoscopy History of rotator cuff surgery History of oral surgery History of tonsillectomy Family History Father HTN (hypertension) Mother Myocardial infarction Brother HTN (hypertension) Diabetes mellitus Son No problems noted. Daughter No problems noted. Brother No problems noted. Brother No problems noted. Sister No problems noted. Sister No problems noted. Son No problems noted. Social History Housing: House Alcohol intake: current Alcohol intake frequency: holidays/special occasions only Alcohol type: beer Patient Tobacco Use Status: Former Tobacco user (quit 5 years ago ) Tobacco use type: Cigarette Cigarette Packs Per Day: 1 Years Smoked: 60 e-Cigarette/Vaping Use: Never Used service: No Current occupational status: retired Cognitive needs: No Hearing needs: No Vision needs: No Questionnaire PHQ-9 Over the last 2 weeks, how often have you been bothered by any of the following problems? 1. Little interest or pleasure in doing things: not at all 2. Feeling down, depressed, or hopeless: not at all 3. Trouble falling or staying asleep, or sleeping too much: not at all 4. Feeling tired or having little energy: not at all 5. Poor appetite or overeating: not at all 6. Feeling bad about yourself - or that you are a failure or have let yourself or your family down: not at all 7. Trouble concentrating on things, such as reading the newspaper or watching television: not at all 8. Moving or speaking so slowly that other people could have noticed. Or the opposite - being so fidgety or restless that you have been moving around a lot more than usual: not at all 9. Thoughts that you would be better off or of hurting yourself in some way: not at all Total score: 0 Depression Screening Interpretation: Negative Depression Screening Done: Yes 36173 - PHQ-9 Billing: Yes Source: Developed by Drs. Yash Moy, Catarina Wills, Vipin Levy and colleagues, with an educational cristi from [employer]. Thrive Questionnaire Date Thrive assessed: 04/07/22 I am a: Patient What is your living situation today?: I have a steady place to live Within the past 12 months, did the food you bought not last and you didn't have the money to get more?: Never true Within the past 12 months, did you worry whether your food would run out before you got money to buy more?: Never true Do you have trouble paying for medicines?: No Do you have trouble getting transportation to medical appointments?: No Do you have trouble paying your heating and electricity bill?: No Do you have trouble taking care of your child, family member or friend?: No Do you have trouble with day-to-day activities such as bathing, preparing meals, shopping, managing finances, etc.?: No Are you currently unemployed and looking for a job?: No Are you interested in more education?: No Please select the resources that you would like help with: None Currently or been in a relationship where the following occur: No concerns reported THRIVE Score: 0 AUDIT C Alcohol Use Questionnaire (AUDIT-C) 1. How often do you have a drink containing alcohol?: Monthly or less 2. How many drinks containing alcohol do you have on a typical day when you are drinking?: 1 or 2 3. How often do you have six or more drinks on one occasion?: Never Total Score: 1 LINDA-7 AMB Questionnaire LINDA-7 Date LINDA - 7 assessed: 04/07/22 Feeling nervous, anxious, or on edge: 0 = Not at all Not being able to stop or control worryin = Not at all Worrying too much about different things: 0 = Not at all Trouble relaxin = Not at all Being so restless that it is hard to sit still: 0 = Not at all Becoming easily annoyed or irritable: 0 = Not at all Feeling afraid as if something awful might happen: 0 = Not at all Total LINDA-7 score (0-4 normal; 5-9 mild; 10-14 moderate; 15-21 severe): 0 Source: Developed by Drs. Yash Moy, Catarina Wills, Vipin Levy and colleagues, with an educational cristi from [employer]. Review of Systems Const Denies chills and Denies fever(s) ENT Denies epistaxis and Denies nasal discharge Card Denies chest pain Resp Denies chest congestion, Denies cough and Denies hemoptysis GI Denies diarrhea and Denies nausea Skin/Breast Denies rash Neuro Reports no additional complaints Psych Reports no additional complaints Endo Reports no additional complaints Physical exam (Primary Care) Vital Signs: Last Vital Signs Pulse 62 11/02/23 11:57 BP 118/70 11/02/23 11:57 Pulse Ox 97 11/02/23 11:57 Oxygen Delivery Method Room Air 11/02/23 11:57 BMI result Body Mass Index 26.6 Tobacco/Smoking Status: Tobacco use Status Tobacco use date assessed 05/04/23 11/02/23 11:54 Patient Tobacco Use Status Former Tobacco user (quit 5 11/02/23 11:54 years ago ) Tobacco use type Cigarette 11/02/23 11:54 e-Cigarette/Vaping Use Never Used 11/02/23 11:54 PHQ-9: PHQ-9 Score PHQ-9: Total score 0 11/02/23 14:25 Depression Screening Interpretation: Negative Thrive Assessment: Date of Thrive Assessment Date Thrive assessed 04/07/22 11/02/23 11:54 Currently or been in a relationship where the following occur: No concerns reported Const General: cooperative, comfortable and no acute distress Orientation/consciousness: patient oriented x3 HENMT Head: Yes normocephalic Eyes General: appearance normal, both eyes and all related structures Neck Neck: Yes supple Resp Effort & Inspection: normal respiratory effort, no cough and no stridor Cardio Rhythm: regular rhythm Heart sounds: S1 normal heart sound present and S2 normal heart sound present Skin General skin exam: turgor normal Neuro General: patient oriented x3, tone normal and moves all extremities Extrem Right lower extremity: no edema Left lower extremity: no edema Assessment and Plan Assessment & Plan (1) Other specified hypothyroidism: Code(s): E03.8 - Other specified hypothyroidism (2) Osteoarthritis of multiple joints: Code(s): M15.9 - Polyosteoarthritis, unspecified Qualifiers: Osteoarthritis type: primary Qualified Code(s): M15.0 - Primary generalized (osteo)arthritis (3) PAD (peripheral artery disease): Code(s): I73.9 - Peripheral vascular disease, unspecified (4) Lipid disorder: Code(s): E78.9 - Disorder of lipoprotein metabolism, unspecified (5) Difficulty sleeping: Code(s): G47.9 - Sleep disorder, unspecified (6) Anxiety, generalized: Code(s): F41.1 - Generalized anxiety disorder (7) Oral cancer: Code(s): C06.9 - Malignant neoplasm of mouth, unspecified (8) Nephropathy: Code(s): N28.9 - Disorder of kidney and ureter, unspecified (9) Mood disorder: Code(s): F39 - Unspecified mood [affective] disorder (10) Peripheral neuropathy: Code(s): G62.9 - Polyneuropathy, unspecified Qualifiers: Peripheral neuropathy type: polyneuropathy, unspecified Qualified Code(s): G62.9 - Polyneuropathy, unspecified (11) Thrombocytopenia: Code(s): D69.6 - Thrombocytopenia, unspecified Plan Patient is 77-year-old female this is a regular follow-up appointment. Labs were done July again Patient continued to have pain in her left lower extremity X-ray done of her ankle in the past showed osteoarthritic changes She is also seeing vascular specialist Dr. Bojorquez and had ultrasound done Which showed slight vascular problem in the right leg but not in the left with the pain is I am starting her on Celebrex 100 mg once a day with breakfast Patient will update me how she is feeling with this medication in couple of weeks For paresthesia lower extremity patient has already seen neurology and had EMG nerve conduction study which was negative She has also tried gabapentin which did not help She is taking trazodone 100 mg at night to sleep. ? Patient have squamous cell carcinoma of tongue currently patient is doing well and is stable Moods are stable with sertraline 200 mg Patient is on lovastatin 80 mg for lipid control Hypothyroidism: continue levothyroxine 100 mcg Follow-up 3 months Medications: New celecoxib (Celebrex) 100 mg PO DAILY 30 caps 0RF 30 days Coding Level of Care Code Est Pt Level 4 (92083) Complex EM visit Add On G2211 Diagnoses Other specified hypothyroidism E03.8 Primary osteoarthritis involving multiple joints M15.0 Osteoarthritis type: primary PAD (peripheral artery disease) I73.9 Lipid disorder E78.9 Difficulty sleeping G47.9 Anxiety, generalized F41.1 Oral cancer C06.9 Nephropathy N28.9 Mood disorder F39 Peripheral polyneuropathy G62.9 Peripheral neuropathy type: polyneuropathy, unspecified Thrombocytopenia D69.6
[2023-11-02 11:57] VITALS: BP 118/70; PULSE 62; O2SAT 97; BMI 26.6
== END 2023-11-02 12:14 | disposition home or self-care (01) ==
PROVIDERS: PCP Internal Medicine; Visit Provider Internal Medicine
DX: I73.9 Peripheral vascular disease, unspecified (principal); C06.9 Malignant neoplasm of mouth, unspecified; F39 Unspecified mood [affective] disorder; D69.6 Thrombocytopenia, unspecified; E03.8 Other specified hypothyroidism; M15.0 Primary generalized (osteo)arthritis; E78.9 Disorder of lipoprotein metabolism, unspecified; G47.9 Sleep disorder, unspecified; F41.1 Generalized anxiety disorder; N28.9 Disorder of kidney and ureter, unspecified; G62.9 Polyneuropathy, unspecified
CPT/HCPCS: 99214; G2211

== ENCOUNTER 2023-12-08 10:56 | Outpatient (AMB) | payer MEDICARE, SELFPAY ==
--- NOTE | 2023-12-08 11:02 | A.OFFVIS_ITS ---
Intake Visit Reasons: follow up Arterial US 10/26/23 Intake Note: Patient presents for arterial US done on 10/26/23. Pateint states she has throbbing in her left foot , also feels burning in the foot and toes. Feels weakness in her legs when walking. Accompanied by: Self / Same As Patient Allergies No Known Drug Allergies Allergy (Unknown, Verified 12/08/23 11:04) Unknown HPI HPI follow up Arterial US 10/26/23: Details: Very pleasant 78-year-old female presents for follow-up evaluation regarding peripheral vascular disease. Upon discussion with her she notes generalized pain in weakness of her leg. She reports it is more of a difficulty getting up from a sitting position and kneeling as well. She has difficulty ambulating and reports that it is more of a balance issue than anything else. She does report that she is being seen and treated by Physical therapy for vertigo and balance issues. 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 This was treated nearly 10 years ago. 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 It turned out to be negative for cancer at that time. She reports that she quit smoking back in 2013 after this entire incident. She now presents for follow-up with arterial testing. [facility] Medical History Pre-op evaluation Preoperative evaluation for tubal ligation History of mouth cancer Lipid disorder Other specified hypothyroidism Difficulty sleeping Anxiety, generalized Surgical History Status post excisional biopsy History of colonoscopy History of rotator cuff surgery History of oral surgery History of tonsillectomy Family History Father HTN (hypertension) Mother Myocardial infarction Brother HTN (hypertension) Diabetes mellitus Son No problems noted. Daughter No problems noted. Brother No problems noted. Brother No problems noted. Sister No problems noted. Sister No problems noted. Son No problems noted. Social History Housing: House Alcohol intake: current Alcohol intake frequency: holidays/special occasions only Alcohol type: beer Patient Tobacco Use Status: Former Tobacco user (quit 5 years ago ) Tobacco use type: Cigarette Cigarette Packs Per Day: 1 Years Smoked: 60 e-Cigarette/Vaping Use: Never Used service: No Current occupational status: retired Cognitive needs: No Hearing needs: No Vision needs: No Review of Systems Const All systems reviewed & are unremarkable except as noted in HPI and below Reports no additional complaints ENT Reports Normal hearing present Card Denies chest pain, Denies chest pain at rest, Denies chest pain with activity and Denies pedal edema Resp Denies cough GI Denies abdominal pain Musc Denies abnormal gait, Denies muscle cramps and Denies radiating pain into limb Skin/Breast Denies skin ulcer and Denies wounds Neuro Reports Normal hearing present and Denies abnormal gait Psych Reports no additional complaints Physical Exam Const General: cooperative, healthy appearing and comfortable Orientation/consciousness: oriented to person, oriented to place and oriented to time HEENT Head: Yes normal to inspection Neck Neck: Yes normal visual inspection Carotids: no bruits Chest Chest palpation & inspection: normal inspection of the chest Resp Effort & Inspection: normal respiratory effort and able to speak in complete sentences Auscultation: clear to auscultation bilaterally, no crackles, no rales, no rhonchi and no wheezes Cardio Other: Bilateral palpable posterior tibial pulse Rate: regular rate Rhythm: regular rhythm Heart sounds: S1 normal heart sound present and S2 normal heart sound present Bruits: no carotid bruits Peripheral pulses: Peripheral pulses 2+ throughout GI Inspection: Yes normal to inspection Skin Wounds: no wounds Hair: normal Neuro General: oriented to person, oriented to place and oriented to time Cranial nerves: Yes CN's II-XII intact bilaterally and Yes Normal hearing present Cognition (Neuro): normal cognition Motor exam (neuro): 5/5 motor strength present throughout Extrem Other: venous exam: No significant superficial varicosities or spider telangiectasias, minimal edema General: No clubbing, No cyanosis and No edema Psych Appearance: grossly normal Mental Status: mental status grossly normal Speech and movement: Normal speech and movement present Assessment & Plan Assessment & Plan (1) PAD (peripheral artery disease): Code(s): I73.9 - Peripheral vascular disease, unspecified Category: Medical Plan: In short patient has stable claudication. I did review the pathophysiology of peripheral vascular disease with the patient. In addition we did discuss routine conservative measures including a healthy diet and the importance of exercise and ambulation. We did discuss risk factor modification. Due to her significant smoking history we will continue to surveil her. The patient will continue to to follow-up with surveillance follow-up in approximately 1 year. Thank you for allowing us to participate in this patient's care. If there are any questions or concerns please do not hesitate to contact us. Please note a longitudinal relationship has been created with the patient and we have been following and surveillance this chronic condition. Coding Level of Care Code Est Pt Level 4 (44845) Complex EM visit Add On G2211 Diagnoses PAD (peripheral artery disease) I73.9
== END 2023-12-08 11:23 | disposition home or self-care (01) ==
PROVIDERS: PCP Internal Medicine; Visit Provider Surgery Vascular Surgery
DX: I73.9 Peripheral vascular disease, unspecified (principal)
CPT/HCPCS: 99214; G2211

== ENCOUNTER → 2023-12-08 10:56 | Outpatient (BNVA) | payer MEDICARE, SELFPAY | PROVIDERS: PCP Internal Medicine; Visit Provider Surgery Vascular Surgery | DX: I73.9 Peripheral vascular disease, unspecified (principal); Z87.891 Personal history of nicotine dependence | CPT/HCPCS: 99212 ==

== ENCOUNTER 2024-02-29 10:52 | Outpatient (AMB) | payer MEDICARE, SELFPAY ==
[2024-02-29 10:54] VITALS: BP 112/82; PULSE 84; O2SAT 96
--- NOTE | 2024-02-29 10:54 | A.OFFPC_ITS ---
Vital Signs 3 02/29/24 10:54 Height 5 ft 1 in BMI Reason not done Patient refused/unable BP 112/82 Blood Pressure Location Rt brachial Position Sitting Pulse 84 Pulse Source Pulse Oximeter Pulse Oximetry (%) 96 Oxygen Delivery Method Room Air Intake Visit Reasons: Office visit Allergies No Known Drug Allergies Allergy (Unknown, Verified 02/29/24 10:55) Unknown Medication List - Last Reconciled 02/29/24 by Maye Luna MD aspirin 81 mg PO DAILY cetirizine (Zyrtec) 10 mg PO DAILY PRN cholecalciferol (vitamin D3) 25 mcg PO DAILY levothyroxine 100 mcg PO DAILY 90 days lovastatin 80 mg (2 x 40 mg) PO DAILY 90 days oxycodone 5 mg PO BEDTIME PRN sertraline 200 mg (2 x 100 mg) PO DAILY 90 days trazodone 100 mg PO DAILY 90 days Tobacco use date assessed: 02/29/24 Fall risk assessment: No Falls in past year Last assessed Fall Risk: 02/29/24 Dental Screening Dental Screen Date: 02/29/24 Did you have a dental visit in the last 12 months?: Yes Did you have a dental problem in the last 6 months where you did not have access to dental care?: Yes Was dental information given to patient?: Patient has dentist HPI Office visit 2 HPI0 Details Patient is a 78-year-old female who is suffering from oral cancer and recently had a surgery with skin grafting taken from her left anterior forearm and left leg Wounds are healing well She has appointment with surgeon Dr. Bennett at [facility] coming up in 2 days Patient is in pain, she is taking 2 oxycodone at night Patient ran out of her oxycodone that was given to her by the surgeon She is requesting that I take over the pain management Which I have, I have sent 30 tablets for 15 days She will give me a call for refill if needed and then come in for follow-up in 1 month Wounds are healing well Patient is able to swallow pills Having difficulty talking, she is here with her daughter , she helped with communication [facility] Medical History Pre-op evaluation Preoperative evaluation for tubal ligation History of mouth cancer Lipid disorder Other specified hypothyroidism Difficulty sleeping Anxiety, generalized Surgical History Status post excisional biopsy History of colonoscopy History of rotator cuff surgery History of oral surgery History of tonsillectomy Family History Father HTN (hypertension) Mother Myocardial infarction Brother HTN (hypertension) Diabetes mellitus Son No problems noted. Daughter No problems noted. Brother No problems noted. Brother No problems noted. Sister No problems noted. Sister No problems noted. Son No problems noted. Social History Housing: House Alcohol intake: current Alcohol intake frequency: holidays/special occasions only Alcohol type: beer Patient Tobacco Use Status: Former Tobacco user (quit 5 years ago ) Tobacco use type: Cigarette Cigarette Packs Per Day: 1 Years Smoked: 60 e-Cigarette/Vaping Use: Never Used service: No Current occupational status: retired Cognitive needs: No Hearing needs: No Vision needs: No Questionnaire PHQ-9 Over the last 2 weeks, how often have you been bothered by any of the following problems? 1. Little interest or pleasure in doing things: not at all 2. Feeling down, depressed, or hopeless: not at all 3. Trouble falling or staying asleep, or sleeping too much: not at all 4. Feeling tired or having little energy: not at all 5. Poor appetite or overeating: not at all 6. Feeling bad about yourself - or that you are a failure or have let yourself or your family down: not at all 7. Trouble concentrating on things, such as reading the newspaper or watching television: not at all 8. Moving or speaking so slowly that other people could have noticed. Or the opposite - being so fidgety or restless that you have been moving around a lot more than usual: more than half the days 9. Thoughts that you would be better off or of hurting yourself in some way: not at all Total score: 2 Depression Screening Interpretation: Negative Depression Screening Done: Yes [id number] - PHQ-9 Billing: Yes Source: Developed by Drs. Yash Moy, Catarina Wills, Vipin Levy and colleagues, with an educational cristi from [employer]. Thrive Questionnaire Date Thrive assessed: 02/29/24 I am a: Patient What is your living situation today?: I have a steady place to live Within the past 12 months, did the food you bought not last and you didn't have the money to get more?: Never true Within the past 12 months, did you worry whether your food would run out before you got money to buy more?: Never true Do you have trouble paying for medicines?: No Do you have trouble getting transportation to medical appointments?: No Do you have trouble paying your heating and electricity bill?: No Do you have trouble taking care of your child, family member or friend?: No Do you have trouble with day-to-day activities such as bathing, preparing meals, shopping, managing finances, etc.?: No Are you currently unemployed and looking for a job?: No Are you interested in more education?: No Please select the resources that you would like help with: None Currently or been in a relationship where the following occur: No concerns reported THRIVE Score: 0 AUDIT C Alcohol Use Questionnaire (AUDIT-C) 1. How often do you have a drink containing alcohol?: Never Total Score: 0 Score Reviewed/Action Taken: Yes LINDA-7 AMB Questionnaire LINDA-7 Date LINDA - 7 assessed: 02/29/24 Feeling nervous, anxious, or on edge: 0 = Not at all Not being able to stop or control worryin = Not at all Worrying too much about different things: 0 = Not at all Trouble relaxin = Not at all Being so restless that it is hard to sit still: 0 = Not at all Becoming easily annoyed or irritable: 0 = Not at all Feeling afraid as if something awful might happen: 0 = Not at all Total LINDA-7 score (0-4 normal; 5-9 mild; 10-14 moderate; 15-21 severe): 0 Source: Developed by Drs. Yash Moy, Catarina Wills, Vipin Levy and colleagues, with an educational cristi from [employer]. LINDA-7 Assessment Billing LINDA-7 Assessment Tool: LINDA-7 Assessment 04358 Review of Systems Const Denies chills and Denies fever(s) ENT Denies epistaxis and Denies nasal discharge Card Denies chest pain Resp Denies chest congestion, Denies cough and Denies hemoptysis Skin/Breast Denies rash Neuro Reports no additional complaints Psych Reports no additional complaints Endo Reports no additional complaints Physical exam (Primary Care) Vital Signs: Last Vital Signs Pulse 84 02/29/24 10:54 BP 112/82 02/29/24 10:54 Pulse Ox 96 02/29/24 10:54 Oxygen Delivery Method Room Air 02/29/24 10:54 Tobacco/Smoking Status: Tobacco use Status Tobacco use date assessed 02/29/24 02/29/24 11:00 Patient Tobacco Use Status Former Tobacco user (quit 5 02/29/24 11:00 years ago ) Tobacco use type Cigarette 02/29/24 11:00 e-Cigarette/Vaping Use Never Used 02/29/24 11:00 PHQ-9: PHQ-9 Score PHQ-9: Total score 2 02/29/24 11:10 Depression Screening Interpretation: Negative Thrive Assessment: Date of Thrive Assessment Date Thrive assessed 02/29/24 02/29/24 11:10 Currently or been in a relationship where the following occur: No concerns reported Const General: cooperative, comfortable and no acute distress Orientation/consciousness: patient oriented x3 HENMT Head: Yes normocephalic Head images: 2 1. Swelling present 2. Site of skin grafting Eyes General: appearance normal, both eyes and all related structures Resp Effort & Inspection: normal respiratory effort, no cough and no stridor GI Abdomen image: 2 1. Wound healing skin grafting Skin General skin exam: turgor normal Neuro General: patient oriented x3, tone normal and moves all extremities Extrem Right lower extremity: no edema Left lower extremity: no edema Coding Level of Care Code Est Pt Level 3 (18219) Diagnoses Oral cancer C06.9 Additional Codes LINDA-7 Assessment Billing - LINDA-7 Assessment Tool: LINDA-7 Assessment 11716 ([id number]) PHQ-9 - 12371 - PHQ-9 Billing: Yes ([id number]) Assessment & Plan Assessment & Plan (1) Oral cancer: Code(s): C06.9 - Malignant neoplasm of mouth, unspecified Category: Medical Plan Patient is a 78-year-old female who is suffering from oral cancer and recently had a surgery with skin grafting taken from her left anterior forearm and left leg Wounds are healing well She has appointment with surgeon Dr. Bennett at [facility] coming up in 2 days Patient is in pain, she is taking 2 oxycodone at night Patient ran out of her oxycodone that was given to her by the surgeon She is requesting that I take over the pain management Which I have, I have sent 30 tablets for 15 days She will give me a call for refill if needed and then come in for follow-up in 1 month Wounds are healing well Patient is able to swallow pills Having difficulty talking, she is here with her daughter , she helped with communication Medications: New 2 oxycodone 10 mg (2 x 5 mg) PO BEDTIME PRN 30 caps 0RF Oral cancer 15 days
== END 2024-02-29 11:23 | disposition home or self-care (01) ==
PROVIDERS: PCP Internal Medicine; Visit Provider Internal Medicine
DX: C06.9 Malignant neoplasm of mouth, unspecified (principal)

== ENCOUNTER → 2024-02-29 10:52 | Outpatient (BNVA) | payer MEDICARE, SELFPAY | PROVIDERS: PCP Internal Medicine; Visit Provider Internal Medicine | DX: C06.9 Malignant neoplasm of mouth, unspecified (principal); Z79.891 Long term (current) use of opiate analgesic; Z87.891 Personal history of nicotine dependence | CPT/HCPCS: 96127; 99212 ==